=== PATIENT | male | born 1960 | race Caucasian/White ===

== ENCOUNTER → 2017-07-14 10:16 | Outpatient (CLI) | payer OTHER, SELFPAY ==
--- NOTE | 2017-07-14 10:22 | XR_ITS ---
XR chest 2V HISTORY: ITS.REASON: LEUKOCYSTOSIS ORDERING PHYSICIAN: Sarika Barnes PATIENT AGE: 56 years COMPARISON: 02/09/2016 FINDINGS: The cardiomediastinal silhouette and pulmonary vascularity are within normal limits. The lungs are clear without infiltrates, suspicious nodules, or pleural effusions . Bone plate is present over the lower cervical spine No acute bony abnormalities. IMPRESSION: No acute finding
== END ==
PROVIDERS: PCP Family Medicine; Visit Provider Nurse Practitioner
DX: D72.829 Elevated white blood cell count, unspecified (principal)
CPT/HCPCS: 71046

== ENCOUNTER → 2018-06-20 07:47 | Outpatient (CLI) | payer MEDICARE, SELFPAY ==
--- NOTE | 2018-06-20 07:59 | CT_ITS ---
CT lung screening EXAM: CT LUNG LOW DOSE WO CONTRAST HISTORY: 40 pack-year smoking history asymptomatic lung cancer ITS.REASON: CURRENT SMOKER,LUNG SCREEN ORDERING PHYSICIAN: Mayur Guo MD PATIENT AGE: 57 years COMPARISON: None TECHNIQUE: The exam was performed on a GE Light Speed [address] scanner using 2.90 mGy CTDI. A low dose helical CT CHEST was performed on a multi-detector scanner. All CT scans at the facility use one or more dose reduction, viz: automated exposure control, ma/kV adjustment per patient size (including targeted exams where dose is matched to indication, i.e. head), or iterative reconstruction technique. The LDCT was performed in a facility that meets the criteria for the screening program. Data regarding this exam was submitted to ACR which is an approved registry. The order for this exam indicates that it came as a result of a lung cancer screening counseling shard decision-making visit that included all the elements required of such a visit including smoking cessation. The radiologist interpreting this exam meets the CMS criteria for the LDCT lung cancer screening program. The exam is reported using the Lung-RADS classification scale and reported to the ACR registry. NOTE: This study was performed for the specific purposes of lung cancer screening and is not an alternative to diagnostic chest CT. RADIATION DOSE: CTDI vol(CT dose Index-volume) = 2.90mG DLP (Dose Length Product) = 108.26 mGcm FINDINGS: Centrilobular emphysema with hyperinflation and bronchial thickening consistent with obstructive chronic bronchitis. Coronary artery calcifications noted Calcified granuloma right perihilar region 6 mm noncalcified nodule left upper lobe centrally image #47 7 mm noncalcified nodule left upper lobe centrally image #41 mm noncalcified nodule left upper lobe centrally image #42 IMPRESSION: 1. Lung RADS Category: 3, probably benign 2. Other findings: Centrilobular emphysema/COPD Coronary artery calcification RECOMMENDATIONS: [address] follow-up
== END ==
PROVIDERS: PCP Family Medicine; Visit Provider Family Medicine
DX: Z12.2 Encounter for screening for malignant neoplasm of respiratory organs (principal); Z87.891 Personal history of nicotine dependence

== ENCOUNTER → 2022-01-20 12:43 | Outpatient (CLI) | payer MEDICARE, SELFPAY ==
--- NOTE | 2022-01-20 12:51 | XR_ITS ---
FINAL REPORT CLINICAL HISTORY: SOB, wheezing, smoker, copd COMPARISON: July 14, 2017 FINDINGS: SINGLE VIEW CHEST The heart is normal in size. The mediastinum is unremarkable. The lungs are clear. There is no pneumothorax. There is postoperative change in the lower cervical spine. IMPRESSION: No acute process. Reviewed, Interpreted and Dictated by Maldonado Enrique III, MD Transcribed by Brit Villalpando Authenticated and [facility]
[2022-01-20 13:26] LABS: Basophils # 0.2 K/mm3 (0-0.2); Basophils % 1.2 % (0.1-2.0); Eosinophils # 0.2 K/mm3 (0.0-0.4); Eosinophils % 1.2 % (0.1-12.0); Hematocrit 48.2 % (42.0-52.0); Hemoglobin 15.6 g/dL (14.1-18.0); Lymphocytes # 4.3 K/mm3 (0.7-4.5); Lymphocytes % 26.3 % (10-50); Mean Corpuscular HGB Conc 32.4 g/dL (31.8-35.4); Mean Corpuscular Hemoglobin 30.7 pg (27.0-31.2); Mean Corpuscular Volume 94.8 fl (80-94); Mean Platelet Volume 8.5 fl (7.4-10.4); Monocytes # 0.7 K/mm3 (0.1-1.0); Monocytes % 4.2 % (1.7-9.3); Neutrophils # 10.9 K/mm3 (1.8-7.8); Neutrophils % 67.1 % (37.0-80.0); Platelet Count 322 K/mm3 (142-424); Red Blood Count 5.08 M/mm3 (4.60-6.20); Red Cell Distribution Width 13.1 % (11.5-17.5); White Blood Count 16.2 K/mm3 (4.8-10.8)
[2022-01-20 13:29] LABS: MANUAL DIFFERENTIAL MANUAL DIFFERENTIAL (MANUAL DIFF)
--- NOTE | 2022-01-20 13:34 | ECG_ITS ---
APPROVED REPORT Exam: Resting ECG HR:70 bpm ECG Measurements Heart Rate 70 AXES ID 138 P 54 QRSd 101 QRS 50 QT 379 T 41 QTc 400 Conclusion SINUS RHYTHM LOW QRS VOLTAGE IN PRECORDIAL LEADS [QRS DEFLECTION < 1.0 mV IN CHEST LEADS] BORDERLINE ECG UNCONFIRMED REPORT Electronically signed by : Scott Multani MD 01/20/2022 20:59:52
[2022-01-20 13:45] LABS: Lymphocytes % 38 % (10-50); Monocytes % 2 % (2-9); Neutrophils % 60 % (42-76); Total Cells Counted 100
[2022-01-20 13:46] LABS: Platelet Estimate Normal; RBC Morphology Normal
[2022-01-20 13:48] LABS: Chloride 103 mmol/L (98-107); Sodium 138 mmol/L (136-145)
[2022-01-20 13:49] LABS: Potassium 4.3 mmoL/L (3.5-5.1)
[2022-01-20 13:51] LABS: Albumin Level 4.7 g/dl (3.5-5.0); Albumin/Globulin Ratio 1.8 (1.1-1.8); Globulin 2.6 g/dL (1.3-3.2); Total Protein,Serum 7.3 g/dl (6.3-8.2)
[2022-01-20 14:10] LABS: Alanine Aminotransferase 24 U/L (12-78); Alkaline Phosphatase 153 U/L (38-126); Anion Gap 11.3 mEq/L (5-15); Aspartate Amino Transferase 31 U/L (17-59); Bilirubin,Total 0.7 mg/dl (0.2-1.3); Blood Urea Nitrogen 18 mg/dl (9-20); Calcium 9.7 mg/dl (8.4-10.2); Carbon Dioxide 28 mmol/L (22.0-30.0); Estimated Glomerular Filt Rate 68 ml/min (>60); GFR (African American) 82 ML/MIN (>60); Glucose 135 mg/dl (74-100)
[2022-01-20 14:20] LABS: Thyroid Stimulating Hormone 0.87 uIU/mL (0.465-4.68)
[2022-01-20 14:42] LABS: Prostate Specific Ag Screen 12.3 ng/ml (0.0-4.0)
== END ==
PROVIDERS: PCP Nurse Practitioner; Visit Provider Nurse Practitioner
DX: R06.02 Shortness of breath (principal); Z87.891 Personal history of nicotine dependence; Z12.5 Encounter for screening for malignant neoplasm of prostate; E04.1 Nontoxic single thyroid nodule
CPT/HCPCS: 36415; 71045; 80053; 84443; 85007; 85025; 93005; G0103

== ENCOUNTER → 2022-02-23 07:06 | Outpatient (CLI) | payer MEDICARE, SELFPAY ==
--- NOTE | 2022-02-23 07:06 | CT_ITS ---
FINAL REPORT CLINICAL HISTORY: lung cancer screening. currently smoking 1 ppd x 40 years. copd, exposed to 2nd hand smoke. no family hx of lung cancer. COMPARISON: June 20, 2018 FINDINGS: Low-Dose Chest CT Axial images were obtained from the lung apex to the mid abdomen by computed tomography. Low-dose protocol was utilized. CTDI vol (mGy): 2.90 DLP (mGy-cm): 106.29 There is no axillary adenopathy. There is no hilar or mediastinal adenopathy. The heart is proper size. There are moderate coronary artery calcifications. There is no pericardial or pleural effusion. Limited images of the upper abdomen demonstrate postoperative changes from cholecystectomy. Lung window images demonstrate mild changes of emphysema with mild pulmonary scarring. There are several calcified granulomas. There are several less than 5 mm noncalcified nodules which are stable. No new mass or nodule is identified. IMPRESSION: Several less than 5 mm noncalcified nodules, stable. Lung RADS category 1. Recommend 12 month follow-up low-dose chest CT. Reviewed, Interpreted and Dictated by Maldonado Enrique III, MD Transcribed by Brit Villalpando Authenticated and [facility]
[2022-02-23 08:45] VITALS: PULSE 72; PULSE 77
== END ==
PROVIDERS: PCP Nurse Practitioner; Visit Provider Nurse Practitioner
DX: R06.02 Shortness of breath (principal); R22.1 Localized swelling, mass and lump, neck; Z12.9 Encounter for screening for malignant neoplasm, site unspecified; Z87.891 Personal history of nicotine dependence; Z01.818 Encounter for other preprocedural examination
CPT/HCPCS: 71271; 94060; 94640; 94727; 94729; C9803; U0003; U0005

== ENCOUNTER → 2022-02-24 06:07 | Outpatient (CLI) | payer MEDICARE, SELFPAY ==
[2022-02-24 18:18] LABS: Basophils # 0.1 K/mm3 (0-0.2); Basophils % 0.8 % (0.1-2.0); Eosinophils # 0.4 K/mm3 (0.0-0.4); Eosinophils % 2.1 % (0.1-12.0); Hemoglobin 15.2 g/dL (14.1-18.0); Lymphocytes # 3.7 K/mm3 (0.7-4.5); Lymphocytes % 21.7 % (10-50); Mean Corpuscular HGB Conc 33.1 g/dL (31.8-35.4); Mean Corpuscular Hemoglobin 31.1 pg (27.0-31.2); Mean Platelet Volume 9.5 fl (7.4-10.4); Monocytes # 0.7 K/mm3 (0.1-1.0); Monocytes % 3.8 % (1.7-9.3); Neutrophils # 12.3 K/mm3 (1.8-7.8); Neutrophils % 71.6 % (37.0-80.0); Platelet Count 391 K/mm3 (142-424); Red Blood Count 4.89 M/mm3 (4.60-6.20); Red Cell Distribution Width 13.3 % (11.5-17.5); White Blood Count 17.2 K/mm3 (4.8-10.8)
[2022-02-24 18:20] LABS: MANUAL DIFFERENTIAL MANUAL DIFFERENTIAL (MANUAL DIFF)
[2022-02-24 18:35] LABS: Alanine Aminotransferase 23 U/L (12-78); Albumin Level 4.1 g/dl (3.5-5.0); Albumin/Globulin Ratio 1.6 (1.1-1.8); Alkaline Phosphatase 144 U/L (38-126); Anion Gap 9.6 mEq/L (5-15); Aspartate Amino Transferase 32 U/L (17-59); Bilirubin,Total 0.4 mg/dl (0.2-1.3); Blood Urea Nitrogen 15 mg/dl (9-20); Calcium 9.5 mg/dl (8.4-10.2); Carbon Dioxide 30 mmol/L (22.0-30.0); Chloride 100 mmol/L (98-107); Chol/HDL Ratio 4.3 (1-3.5); Cholesterol 152 mg/dl (140-200); Estimated Glomerular Filt Rate 76 ml/min (>60); GFR (African American) 92 ML/MIN (>60); Globulin 2.5 g/dL (1.3-3.2); Glucose 110 mg/dl (74-100); HDL Cholesterol 35 mg/dl (40-60); Potassium 4.6 mmoL/L (3.5-5.1); Sodium 135 mmol/L (136-145); Total Protein,Serum 6.6 g/dl (6.3-8.2); Triglycerides 220 mg/dl (30-150); VLDL Cholesterol 44 mg/dL (0-40)
[2022-02-24 18:46] LABS: Direct LDL Cholesterol 79.39 mg/dL (100-129)
[2022-02-24 19:07] LABS: Thyroid Stimulating Hormone 1.41 uIU/mL (0.465-4.68)
[2022-02-24 19:09] LABS: Hemoglobin A1C 6.2 % (4.0-6.0)
[2022-02-24 19:38] LABS: Creatinine,Urine Random 66 mg/dL (Not Estab.)
[2022-02-24 20:12] LABS: Eosinophils % 4 % (0-3); Lymphocytes % 30 % (10-50); Monocytes % 3 % (2-9); Neutrophils % 63 % (42-76); Total Cells Counted 100
[2022-02-24 20:13] LABS: Acanthocytes 1+; Platelet Estimate Normal
== END ==
PROVIDERS: PCP Family Medicine; Visit Provider Family Medicine
DX: E78.00 Pure hypercholesterolemia, unspecified (principal); I10 Essential (primary) hypertension; K21.9 Gastro-esophageal reflux disease without esophagitis; M54.12 Radiculopathy, cervical region; E11.9 Type 2 diabetes mellitus without complications; Z79.84 Long term (current) use of oral hypoglycemic drugs
CPT/HCPCS: 80053; 80061; 82043; 82570; 83036; 84443; 85007; 85025

== ENCOUNTER 2022-02-25 09:46 | Day surgery (SDC) | payer MEDICARE, SELFPAY ==
[2022-02-25 10:32] VITALS: BP 134/90; PULSE 70; RESP 18; TEMP 36.2; O2SAT 97; BMI 31.8
[2022-02-25 10:44] LABS: POC Glucose,Bedside 114 (70-110)
[2022-02-25 11:15] VITALS: O2SAT 97
--- NOTE | 2022-02-25 11:31 | HMH.SCOPE ---
Procedure: Date: 02/25/22 Patient Date of :: 1960 Procedure Performed:: Screening colonoscopy Indications:: Age over 50 screening Performing Provider:: Melissa Luna MD Referring Provider:: Sarika Barnes Sedation:: Propofol Procedure:: After placing the patient in the left lateral decubitus position, the colonoscopy was gently inserted into the rectum and under direct visualization advanced to the cecum which was identified by transillumination in the right lower quadrant, identification of the ileocecal valve, appendiceal orifice, and cecal strap. Color, texture, mucosa, and anatomy of the colon were carefully examined with the scope. Findings:: Anal canal: normal Rectum: normal Sigmoid colon: normal without polyps or inflammatory changes Descending colon: normal without polyps or inflammatory changes Splenic flexure: normal Transverse colon: normal without polyps or inflammatory changes Hepatic flexure: normal Ascending colon: normal without polyps or inflammatory changes Cecum: normal, lipomatous ileocecal valve Terminal ileum: not visualized Impression: Normal colonoscopy Recommendations:: Follow up examination in about TEN years or so sooner if clinically indicated Complications:: None Estimated blood obtained (mL): 0
[2022-02-25 11:38] VITALS: BP 101/56; PULSE 69; RESP 18; O2SAT 99
[2022-02-25 11:50] VITALS: BP 99/53; PULSE 72; RESP 18; O2SAT 97
[2022-02-25 12:00] VITALS: BP 105/60; PULSE 77; RESP 18; O2SAT 96
--- NOTE | 2022-02-25 13:30 | P.PN_ITS ---
[facility] Medical History (Updated 02/25/22 @ 10:25 by Ashlyn Marsh RN) Arthritis BPH loc w urin obs/LUTS Cervical radiculopathy COPD (chronic obstructive pulmonary disease) Diabetes mellitus DM2 (diabetes mellitus, type 2) Elevated PSA GERD (gastroesophageal reflux disease) HTN (hypertension) Hyperlipemia Hyperlipidemia Surgical History History of appendectomy History of cholecystectomy History of neck surgery Family History (Updated 02/25/22 @ 10:27 by Ashlyn Marsh RN) Other Diabetes Hypertension Social History (Updated 02/25/22 @ 10:30 by Ashlyn Marsh RN) Smoking Status: Current every day smoker tobacco type: cigarettes packs per day: 1 years smoked: 40 alcohol intake: never substance use type: marijuana current occupational status: retired Travel in the last 8 weeks: None [facility] Anesthesia Checklist Patient Identification Patient Identification: Arm Band Structural Data Admitted From: Direct Admit Planned Operative Procedure/s: Colonoscopy Consent for Planned Operative Procedure(s) Verified: Yes Verified Documents: Surgical Consent and History and Physical Additional verifications Patient : No Anesthesia Reactions: No Hx Blood Transfusions: No Cephalosporin Allergy: No Previous Colonoscopy: No Airway Assessment C-Spine Mobility Assessed: Yes TMJ Mobility Assessed: Yes Dentition: Good Dentition Neurological Assessment Level of Consciousness: Awake, Alert, Appropriate and Follows Commands Hx Seizures: No Numbness or tingling in extremities: No Genitourinary Assessment Voided senior sales operations analyst to O.R.: Yes Anesthesia Plan Anesthesia Risk discussed: Yes ASA Class: II Anesthesia Type: MAC
--- NOTE | 2022-02-25 13:56 | EXP.ANES.CKL ---
[facility] Medical History (Updated 02/25/22 @ 10:25 by Ashlyn Marsh RN) Arthritis BPH loc w urin obs/LUTS Cervical radiculopathy COPD (chronic obstructive pulmonary disease) Diabetes mellitus DM2 (diabetes mellitus, type 2) Elevated PSA GERD (gastroesophageal reflux disease) HTN (hypertension) Hyperlipemia Hyperlipidemia Surgical History History of appendectomy History of cholecystectomy History of neck surgery Family History (Updated 02/25/22 @ 10:27 by Ashlyn Marsh RN) Other Diabetes Hypertension Social History (Updated 02/25/22 @ 10:30 by Ashlyn Marsh RN) Smoking Status: Current every day smoker tobacco type: cigarettes packs per day: 1 years smoked: 40 alcohol intake: never substance use type: marijuana current occupational status: retired Travel in the last 8 weeks: None [facility] Anesthesia Checklist Patient Identification Patient Identification: Arm Band and Family Structural Data Admitted From: Home Planned Operative Procedure/s: colonoscopy Consent for Planned Operative Procedure(s) Verified: Yes Verified Documents: Surgical Consent NPO Status Verified Time NPO: 00:00 Additional verifications Anesthesia Reactions: No Hx Blood Transfusions: No Cephalosporin Allergy: No Cardiovascular Assessment Heart Sounds: S1 & S2 Airway Assessment C-Spine Mobility Assessed: Yes Dentition: Good Dentition Neurological Assessment Level of Consciousness: Awake and Alert Genitourinary Assessment Voided director of content and programming to O.R.: Yes Anesthesia Plan Anesthesia Risk discussed: Yes ASA Class: II Anesthesia Type: MAC
== END 2022-02-25 12:00 | disposition home or self-care (01) ==
PROVIDERS: PCP Nurse Practitioner; Visit Provider Internal Medicine Gastroenterology
PROC: 0DJD8ZZ Inspection of Lower Intestinal Tract, Via Natural or Artificial Opening Endoscopic (ICD-10-PCS; CPT 45378; principal; 2022-02-25 11:00)
DX: Z12.11 Encounter for screening for malignant neoplasm of colon (principal); E11.9 Type 2 diabetes mellitus without complications; Z72.0 Tobacco use
CPT/HCPCS: G0121; 82962

== ENCOUNTER → 2022-02-26 10:13 | Outpatient (CLI) | payer MEDICARE, SELFPAY | PROVIDERS: PCP Nurse Practitioner; Visit Provider Urology | DX: Z01.812 Encounter for preprocedural laboratory examination (principal); Z20.822 Contact with and (suspected) exposure to COVID-19; R97.20 Elevated prostate specific antigen [PSA] | CPT/HCPCS: C9803; U0003; U0005 ==

== ENCOUNTER 2022-03-01 08:32 | Day surgery (SDC) | payer MEDICARE, SELFPAY ==
[2022-02-26 11:33] VITALS: BMI 32.8
[2022-03-01 09:08] VITALS: BP 131/81; PULSE 62; RESP 18; TEMP 36.2; O2SAT 99
[2022-03-01 09:27] LABS: POC Glucose,Bedside 102 (70-110)
[2022-03-01 10:27] VITALS: BP 81/50; PULSE 59; RESP 18; TEMP 36.1; O2SAT 94
--- NOTE | 2022-03-01 10:29 | EXP.OP.NOTE ---
Date of procedure: 03/01/22 Pre-op Diagnosis:: Elevated PSA Post-op Diagnosis:: Elevated PSA Procedure performed:: Prostate biopsy with transrectal ultrasound guidance Surgeon:: Carlos Moreno MD IDENTITY MANAGEMENT CONSULTANT:: Other Anesthesia: MAC Estimated blood loss (mL): 0 Clinical Note:: 61-year-old white male with PSA elevation of 12.3 presents for prostate biopsy. His last PSA was 5.9 in 2018 which time he also underwent prostate biopsy without evidence of cancer at that time. No PSAs have been done between 2018 and the most recent. Operative findings:: Prostate was measured at 31.1 cm?. There was a significant amount of prostate calcifications. There was no evidence of hypoechoic or hyperechoic lesions. Prostate appeared symmetric Operative note:: Patient taken to the operating room suite and placed into the left lateral decubitus position on the stretcher. Monitored anesthesia care was administered. Patient had performed preoperative enema and oral antibiotics. His legs were flexed up towards the chest and the transrectal ultrasound probe was placed into the rectum and the prostate was easily identified. The prostate was measured at 31.1 cm?. There was an abundance of prostate calcifications present bilaterally mostly in the central zone. There was no evidence of hypoechoic or hyperechoic lesions. Prostate appears symmetric. Local anesthetic was placed into each neurovascular bundle and 12 biopsies then taken in a systematic fashion. The probe removed. The patient tolerated the procedure well there are no complications. Condition: stable Disposition: same day Specimens:: Prostate biopsies x12 Complications:: None
[2022-03-01 10:40] VITALS: BP 95/57; PULSE 58; RESP 18; O2SAT 96
[2022-03-01 10:55] VITALS: BP 105/69; PULSE 59; RESP 18; O2SAT 97
== END 2022-03-01 11:00 | disposition home or self-care (01) ==
PROVIDERS: PCP Nurse Practitioner; Visit Provider Urology
DX: N40.0 Benign prostatic hyperplasia without lower urinary tract symptoms (principal); R97.20 Elevated prostate specific antigen [PSA]; F17.210 Nicotine dependence, cigarettes, uncomplicated; Z79.899 Other long term (current) drug therapy
CPT/HCPCS: 55700; 76942; 82962; 88305

== ENCOUNTER 2022-05-02 07:38 | Emergency (ER) | payer MEDICARE, SELFPAY ==
[2022-05-02 07:36] VITALS: BP 145/88; PULSE 76; RESP 18; TEMP 36.6; O2SAT 98; BMI 33.0
--- NOTE | 2022-05-02 07:53 | XR_ITS ---
PROCEDURE INFORMATION: Exam: XR Lumbosacral Spine Exam date and time: 05/02/2022 7:57 AM Age: 61 years old Clinical indication: Low back pain and lumbago with sciatica and sciatica; Left; Additional info: Pain goes down left leg from back to hip TECHNIQUE: Imaging protocol: Radiologic exam of the lumbosacral spine. Views: 2 or 3 views. COMPARISON: No relevant prior studies available. FINDINGS: Bones/joints: There is straightening of the lumbar curvature. There is at least moderate neural foraminal stenosis at the L5-S1 level. Severity would be more accurately evaluated on MRI lumbar spine, if clinically indicated. Soft tissues: Unremarkable. Intraperitoneal space: Postsurgical changes throughout pelvis. Gastrointestinal tract: No findings to suggest bowel obstruction. Normal bowel gas pattern. Organs: Post cholecystectomy clips. Post appendectomy clips. IMPRESSION: There is straightening of the lumbar curvature. There is at least moderate neural foraminal stenosis at the L5-S1 level. Severity would be more accurately evaluated on MRI lumbar spine, if clinically indicated.
[2022-05-02 08:00] VITALS: BP 144/96; PULSE 76; O2SAT 98
--- NOTE | 2022-05-02 08:00 | PC.NURSE ---
PT TO XR
--- NOTE | 2022-05-02 08:10 | PC.NURSE ---
PT RETURNED FROM XR
--- NOTE | 2022-05-02 08:14 | PC.NURSE ---
DR. FRY AT BEDSIDE TO EVALUATE PT
--- NOTE | 2022-05-02 08:20 | HMH.EDGENADL ---
Discharge Plan Disposition Patient Disposition: Home, Self-Care Condition: Fair Prescriptions Prescriptions: New oxycodone-acetaminophen [Percocet] 5-325 mg tablet 1 tab PO Q6H PRN (Reason: pain) Qty: 10 0RF prednisone 20 mg tablet 20 mg PO BID Qty: 10 0RF No Action atorvastatin 20 mg tablet 20 mg PO DAILY Qty: 30 5RF gabapentin 300 mg capsule 300 mg PO HS Qty: 30 5RF lisinopril 20 mg tablet 20 mg PO DAILY Qty: 30 5RF metformin 500 mg tablet extended release 24 hr 500 mg PO DAILY Qty: 30 5RF albuterol sulfate 90 mcg/actuation HFA aerosol inhaler 2 puff IH Q4-6H PRN (Reason: shortness of breath or wheezing) Qty: 8.5 2RF omeprazole 40 mg capsule,delayed release(DR/EC) 40 mg PO DAILY Qty: 30 3RF Trelegy Ellipta 100-62.5-25 mcg blister with device 1 inh IH DAILY Referrals Follow up/Referrals: Mayur Guo MD [Primary Care Provider] - See instructions Activity Restrictions/Add. Instructions Additional Instructions/Restrictions: Percocet as needed for pain. Prednisone as prescribed. Additional instructions for BACK PAIN: See your physician as soon as possible for further evaluation. Return immediately if back pain becomes intolerable, or if fever, numbness or weakness of your legs, loss of control of your bowels or bladder. Additional instructions for CONTROLLED SUBSTANCES: You have been prescribed a medication that is a controlled substance. Controlled substances include pain medications known as opiates and sedative nerve medications known as benzodiazepines. Tramadol, fioricet, and gabapentin are also controlled substances. Some common opiates include: Codeine (such as Tylenol #3) Hydrocodone (Vicodin, Lortab, Lorcet, Hughes) Oxycodone (Percocet, Percodan, Oxycodone, Oxy IR) Some common benzodiazepines include: Diazepam (Valium) Lorazepam (Ativan) Alprazolam (Xanax) Clonazepam (Klonopin) Oxazepam (Serax) All of these controlled substances are highly addictive and frequently abused. Misuse can and frequently does lead to addiction as well as overdose and . Medication should be stored in a locked cabinet or other secure storage unit. Do not store the medication in a motor vehicle. Short term supplies, 3 days or less, are prescribed because of the highly addictive nature of the medication. Any of the controlled substance medication NOT taken should be disposed of properly and NOT SAVED. The recommended method of disposing of unused medications is: Place the medicines in a sealable plastic bag. If the medicine is a solid, crush it or add water to dissolve it. Add something undesirable (cat litter, coffee grounds, etc.) Dispose of sealed bag in household trash Do not flush or pour unused medicines down a sink or drain. Controlled substances should not be shared, given away or sold. Because of the addictive nature and frequent abuse, these medications are sometimes stolen. These medications should be kept in a safe place where they cannot be stolen. Do not keep them in your car or purse. Lost or stolen prescriptions for controlled substances WILL NOT BE REFILLED in this emergency department, regardless of whether a police report was filed. Clinical Impressions Clinical Impression: Acute low back pain with sciatica, DDD (degenerative disc disease), lumbar Instructions Patient Instructions: DI for Back Pain With Sciatica, DI for Degenerative Disc Disease Discharge ED Provider: Vickey Vidal General Adult HPI General Chief complaint: Back Pain/Injury Stated complaint: BACK PAIN Time Seen by Provider: 05/02/22 08:07 Mode of Arrival: EMS Limitations: No Limitations Description of Symptoms (Recalled from ER Triage Doc. by RN): PT REPORTS LOWER BACK PAIN, LEFT HIP PAIN THAT RADIATES DOWN LEFT LEG. PAIN X 2 WEEKS History of Present Illness HPI narrative: States that 10 days ago he was lifting a 5 gallon bucket when he felt a po
[2022-05-02 08:47] VITALS: BP 155/82; PULSE 72; RESP 20; O2SAT 99
--- NOTE | 2022-05-02 08:47 | PC.NURSE ---
PT MEDICATED PER EMAR, FAMILY AT BEDSIDE. NO FURTHER NEEDS AT THIS TIME
[2022-05-02 08:54] VITALS: BP 155/82; PULSE 80; RESP 17; TEMP 36.8; O2SAT 97
== END 2022-05-02 08:56 | disposition home or self-care (01) ==
PROVIDERS: Emergency Provider Emergency Medicine; PCP Family Medicine
DX: R06.02 Shortness of breath (principal); M54.40 Lumbago with sciatica, unspecified side; M25.552 Pain in left hip; R53.1 Weakness; I10 Essential (primary) hypertension; K21.9 Gastro-esophageal reflux disease without esophagitis; E78.5 Hyperlipidemia, unspecified; E11.9 Type 2 diabetes mellitus without complications; N40.1 Benign prostatic hyperplasia with lower urinary tract symptoms; R97.20 Elevated prostate specific antigen [PSA]; M19.90 Unspecified osteoarthritis, unspecified site; M51.36 Other intervertebral disc degeneration, lumbar region; M48.07 Spinal stenosis, lumbosacral region; F17.210 Nicotine dependence, cigarettes, uncomplicated; Z79.1 Long term (current) use of non-steroidal anti-inflammatories (NSAID); Z79.51 Long term (current) use of inhaled steroids; Z79.52 Long term (current) use of systemic steroids; Z79.84 Long term (current) use of oral hypoglycemic drugs; Z79.899 Other long term (current) drug therapy; Z82.49 Family history of ischemic heart disease and other diseases of the circulatory system; Z83.3 Family history of diabetes mellitus
CPT/HCPCS: 72100; 96372; 99284; J2405

== ENCOUNTER → 2022-08-25 23:38 | Outpatient (CLI) | payer MEDICARE, SELFPAY ==
[2022-08-25 18:43] LABS: Basophils # 0.1 K/mm3 (0-0.2); Basophils % 0.8 % (0.1-2.0); Eosinophils # 0.3 K/mm3 (0.0-0.4); Eosinophils % 1.9 % (0.1-12.0); Hematocrit 49.3 % (42.0-52.0); Hemoglobin 15.8 g/dL (14.1-18.0); Lymphocytes # 4.1 K/mm3 (0.7-4.5); Lymphocytes % 26.2 % (10-50); Mean Corpuscular Hemoglobin 29.7 pg (27.0-31.2); Mean Corpuscular Volume 92.7 fl (80-94); Mean Platelet Volume 9.4 fl (7.4-10.4); Monocytes # 0.6 K/mm3 (0.1-1.0); Neutrophils # 10.6 K/mm3 (1.8-7.8); Neutrophils % 67.1 % (37.0-80.0); Platelet Count 414 K/mm3 (142-424); Red Blood Count 5.31 M/mm3 (4.60-6.20); Red Cell Distribution Width 13.1 % (11.5-17.5); White Blood Count 15.8 K/mm3 (4.8-10.8)
[2022-08-25 18:50] LABS: MANUAL DIFFERENTIAL MANUAL DIFFERENTIAL (MANUAL DIFF)
[2022-08-25 18:52] LABS: Anion Gap 13.6 mEq/L (5-15); Blood Urea Nitrogen 18 mg/dl (9-20); Calcium 9.1 mg/dl (8.4-10.2); Carbon Dioxide 30 mmol/L (22.0-30.0); Chloride 98 mmol/L (98-107); Chol/HDL Ratio 4.4 (1-3.5); Cholesterol 155 mg/dl (140-200); Estimated Glomerular Filt Rate 86 ml/min (>60); GFR (African American) 103 ML/MIN (>60); Glucose 114 mg/dl (74-100); HDL Cholesterol 35 mg/dl (40-60); Potassium 4.6 mmoL/L (3.5-5.1); Sodium 137 mmol/L (136-145); Triglycerides 259 mg/dl (30-150); VLDL Cholesterol 52 mg/dL (0-40)
[2022-08-25 19:03] LABS: Direct LDL Cholesterol 83.64 mg/dL (100-129)
[2022-08-25 19:21] LABS: Hemoglobin A1C 6.1 % (4.0-6.0)
[2022-08-25 22:12] LABS: Eosinophils % 2 % (0-3); Lymphocytes % 22 % (10-50); Monocytes % 2 % (2-9); Neutrophils % 73 % (42-76); Platelet Estimate Normal; RBC Morphology Normal; Total Cells Counted 100
== END ==
PROVIDERS: PCP Family Medicine; Visit Provider Family Medicine
DX: I10 Essential (primary) hypertension (principal); E78.00 Pure hypercholesterolemia, unspecified; E11.9 Type 2 diabetes mellitus without complications; Z79.84 Long term (current) use of oral hypoglycemic drugs
CPT/HCPCS: 80048; 80061; 83036; 85007; 85025

== ENCOUNTER → 2023-02-03 | Outpatient (CLI) | payer MEDICARE, SELFPAY ==
[2023-02-02 19:05] LABS: Basophils # 0.1 K/mm3 (0-0.2); Basophils % 0.3 % (0.1-2.0); Eosinophils # 0.3 K/mm3 (0.0-0.4); Eosinophils % 1.6 % (0.1-12.0); Hematocrit 48.5 % (42.0-52.0); Hemoglobin 15.9 g/dL (14.1-18.0); Lymphocytes # 4.4 K/mm3 (0.7-4.5); Mean Corpuscular HGB Conc 32.8 g/dL (31.8-35.4); Mean Corpuscular Hemoglobin 30.6 pg (27.0-31.2); Mean Corpuscular Volume 93.1 fl (80-94); Mean Platelet Volume 10.7 fl (7.4-10.4); Monocytes # 0.8 K/mm3 (0.1-1.0); Monocytes % 4.3 % (1.7-9.3); Neutrophils # 12.2 K/mm3 (1.8-7.8); Platelet Count 365 K/mm3 (142-424); Red Cell Distribution Width 13.4 % (11.5-17.5); White Blood Count 17.8 K/mm3 (4.8-10.8)
[2023-02-02 19:13] LABS: MANUAL DIFFERENTIAL MANUAL DIFFERENTIAL (MANUAL DIFF)
[2023-02-02 19:36] LABS: Alanine Aminotransferase 19 U/L (12-78); Albumin Level 4.6 g/dl (3.5-5.0); Albumin/Globulin Ratio 1.7 (1.1-1.8); Alkaline Phosphatase 148 U/L (38-126); Anion Gap 16.8 mEq/L (5-15); Aspartate Amino Transferase 29 U/L (17-59); Bilirubin,Total 0.4 mg/dl (0.2-1.3); Blood Urea Nitrogen 20 mg/dl (9-20); Calcium 9.6 mg/dl (8.4-10.2); Carbon Dioxide 30 mmol/L (22.0-30.0); Chloride 100 mmol/L (98-107); Chol/HDL Ratio 4.1 (1-3.5); Cholesterol 147 mg/dl (140-200); Estimated Glomerular Filt Rate 75 ml/min (>60); GFR (African American) 91 ML/MIN (>60); Globulin 2.7 g/dL (1.3-3.2); Glucose 93 mg/dl (74-100); HDL Cholesterol 36 mg/dl (40-60); Potassium 4.8 mmoL/L (3.5-5.1); Sodium 142 mmol/L (136-145); Total Protein,Serum 7.3 g/dl (6.3-8.2); Triglycerides 209 mg/dl (30-150); VLDL Cholesterol 42 mg/dL (0-40)
[2023-02-02 19:47] LABS: Direct LDL Cholesterol 75.51 mg/dL (100-129)
[2023-02-02 20:08] LABS: Prostate Specific Ag Screen 9.1 ng/ml (0.0-4.0); Thyroid Stimulating Hormone 1.41 uIU/mL (0.465-4.68)
[2023-02-02 20:26] LABS: Eosinophils % 1 % (0-3); Lymphocytes % 46 % (10-50); Monocytes % 4 % (2-9); Neutrophils % 49 % (42-76); Platelet Estimate Normal; RBC Morphology Normal; Total Cells Counted 100
[2023-02-03 03:38] LABS: Creatinine,Urine Random 95 mg/dL (Not Estab.); Microalbumin/Creatinine Ratio 18.6
== END ==
PROVIDERS: PCP Nurse Practitioner; Visit Provider Nurse Practitioner
DX: E11.9 Type 2 diabetes mellitus without complications (principal); E78.00 Pure hypercholesterolemia, unspecified; I10 Essential (primary) hypertension; K21.9 Gastro-esophageal reflux disease without esophagitis; R97.20 Elevated prostate specific antigen [PSA]; E78.5 Hyperlipidemia, unspecified; Z12.5 Encounter for screening for malignant neoplasm of prostate; Z79.84 Long term (current) use of oral hypoglycemic drugs
CPT/HCPCS: 80053; 80061; 82043; 82570; 83036; 84443; 85007; 85025; G0103

== ENCOUNTER → 2023-02-11 12:37 | Outpatient (CLI) | payer MEDICARE, SELFPAY ==
--- NOTE | 2023-02-11 | CA_ITS ---
APPROVED REPORT Exam: Exercise Treadmill Technologist: Tasneem Michaels, Ht: 5 ft 8 in Wt: 208 lbs BSA: 2.08 m2 HR: 67 bpm BP: 172/89 mmHg Rhythm: NSR Medical History Medical History: HTN, Hyperlipidemia, Diabetes Medications: Lisinopril,,,,, Omeprazole,,,,, Metformin,,,,, Gabapentin,,,,, Atorvastatin,,,,, Albuterol,,,,, Cefdinir,,,,, Trelegy,,,,, MethcarbaMOL,,,,, Allergies: No known drug allergies Cardiac Risk Factors: HTN, Hyperlipidemia, Diabetes , Smoking Stress Test Details Test: Kian HR Resting HR: 65 bpm Max Heart Rate (APMHR): 157.370345 bpm Max HR Achieved: 132 bpm Target HR (85% APMHR): 133.660964 bpm % of APMHR: 84.08 Recovery HR: 86 bpm BP Resting BP: 172/89 mmHg Max BP: 185/90 mmHg Recovery BP: 151.0/81.0 mmHg ECG Resting ECG: NSR Clinical Exercise duration: 07:01 min Highest Stage Achieved: Exercise capacity: 10.1 METs Stress ECG Conclusion PT WALKEDE 7:00 ON KIAN PROTOCOL MAX HR: 132 % OF PM: 84% MAX BP: 185/90 METS: 10.1 TEST STOPPED DUE TO: HIP PAIN, SOA NO CP OCC PAC APPRX 0.5MM UPSLOPING ST DEPRESSION LATERALLY WITHIN NORMAL GXT FOR HR ACHIEVED MYOVIEW IMAGES IN PROGRESS Test Summary REST . . . . . . . Sitting REST 11:29 0.0 0.0 65 . 172/ 89 . . Stage 1 01:00 10.0 1.7 81 . . . . Stage 1 02:00 10.0 1.7 90 . . . . Stage 1 03:00 10.0 1.7 87 . . . . Stage 2 01:00 12.0 2.5 102 . . . . Stage 2 02:00 12.0 2.5 111 . . . . Stage 2 03:00 12.0 2.5 120 . 185/ 90 . . Stage 3 01:00 14.0 3.4 130 . . . . Stage 3 01:01 14.0 3.4 130 . . . Stop exercise at 07:01 RECOVERY 01:00 0.0 0.0 122 . . . . RECOVERY 02:00 0.0 0.0 91 . 175/ 71 . . RECOVERY 03:00 0.0 0.0 88 . 175/ 71 . . RECOVERY 04:00 0.0 0.0 92 . 157/ 75 . . RECOVERY 05:00 0.0 0.0 91 . 151/ 81 . . RECOVERY 05:26 0.0 0.0 85 . 151/ 81 . . Electronically signed by : Scott Multani MD 02/14/2023 15:56:00
--- NOTE | 2023-02-11 12:38 | NM_ITS ---
APPROVED REPORT Exam: Nuclear Stress Test Indication: HTN, DM, HYPERLIPIDEMIA, TOB USE, C.P. Patient Location: Outpatient Stress Tech: Tasneem Michaels ID Tech:Shari Duong LORENA RT (R)(N)(M) Ht: 5 ft 8 in Wt: 208 lbs HR: 67 bpm BP: 172/89 mmHg BSA: 2.08 m2 TID: 0.99 BMI: 31.6 History: HTN, DM, HYPERLIPIDEMIA, TOB USE, C.P. Procedure: Patient exercised on Abdiaziz protocol 7:01 minutes and sec, resting heart rate 67 bpm, resting blood pressure 172/89 mmHg, with exercise maximum heart rate achived was 132 bpm which is 84 % of the maximum predicted heart rate and blood pressure was 185/90 mmHg. Test was stopped due to FATIGUE. Patient denied any complaint of chest pain. Patient has Average exercise capacity, achieved 10.1 METs of workload on treadmill, the blood pressure response to exercise was Normal. Cardiac Stress and Resting SPECT Images: Cardiac Stress and Resting SPECT images were obtained using technetium 99m Myoview 31.9 mCi stress and 10.98 mCi at rest. Raw images demonstrate significant diaphragmatic overlap with the inferior border of the LV wall. This may affect the diagnostic interpretation of the study findings. Resting and stress imaging in supine position demonstrate a large sized, moderate, fixed perfusion defect in the inferior LV wall. This is no longer visualized with prone stress imaging. Findings are suggestive of diaphragmatic attenuation. Gated imaging demonstrates normal global and regional LV systolic function. LVEF is calculated at 64%. Conclusion: Diaphragmatic attenuation is present. No definite fixed or reversible perfusion defects are present. Gated imaging demonstrates normal global and regional LV systolic function. LVEF is calculated at 64%. Electronically signed by : Hali Pérez, 02/14/2023 20:08:07
== END ==
LOC: RAD 12:38
PROVIDERS: PCP Nurse Practitioner; Visit Provider Nurse Practitioner
DX: R07.9 Chest pain, unspecified (principal)
CPT/HCPCS: 78452; 93017; A9502

== ENCOUNTER → 2023-02-15 14:35 | Outpatient (CLI) | payer MEDICARE, SELFPAY ==
--- NOTE | 2023-02-15 14:39 | CA_ITS ---
APPROVED REPORT EXAM: Comprehensive 2D, Doppler, and color-flow Echocardiogram Senior Mainframe Developer: CHARISMA Bahena, RVS Ht: 5 ft 8 in Wt: 208lbs BSA: 2.08 BP: 130/63 mmHg Indications: Smoker, COPD, SOB, DM, HLD 2D Dimensions Aortic Root 3.40 cm M: 3.1 - 3.7 LA Volume 51.70 mL Left Atrium 2.50 cm M: 3.0 - 4.0 LA Volume Index 24.86 mL/m2 (M/F) 16-34 LVOT 1.97 cm (M/F) 1.5-2.5 M-Mode Dimensions RVDd 2.21 cm (0.9-2.6) LA Diam 2.98 cm (1.9-4.0) LVDd 4.97 cm (3.5-5.7) Ao Diam 3.48 cm (2.0-3.7) LVDs 3.32 cm (3.5-5.7) IVSd 1.18 cm (0.6-1.1) PWd 1.07 cm (0.6-1.1) EF (Teich) 61.60% EPSs 0.14 cm FS 33.20% EDV (Teich) 116.60 mL TAPSE 2.59 (<1.7) ESV (Teich) 44.80 mL LV Diastology E Decel Time 273.00 (160-240 msec) E/A Ratio 0.79 MED E' 6.50 (< 7 cm/sec) MED A' 9.70 cm/s E'/MED E' Ratio 11.25 (>14) LAT E' 9.40 (<10 cm/sec) LAT A' 10.50 cm/s E/LAT E' Ratio 7.78 (>14) Aortic Valve LVOT Max 134.00 (70-110 cm/s) LVOT VTI 27.93 cm AoV Peak Petar. 138.00 (50-130 cm/s) AO Peak GR. 7.60 mmHg AO Mean GR. 3.80 (<5 mmHg) AO VTI 27.82 (18-25 cm) SHAWN (VTI) 3.06 (2.5-4.5 cm2) Mitral Valve MV A Velocity 92.00 (40-130 cm/s) E/A Ratio 0.79 MV Decel. Time 273.00 (160-240 ms) Pulmonary Valve PV Peak Velocity 79.00 (50-150 cm/s) Tricuspid Valve TR P. Velocity 184.00 cm/s Left Ventricle The left ventricle is normal size. The left ventricular systolic function is normal. The left ventricular ejection fraction is within the normal range. There is normal left ventricular wall thickness. There is normal LV segmental wall motion. The left ventricular diastolic function is normal. LVEF is 55%. Right Ventricle The right ventricle is normal size. The right ventricular systolic function is normal. Atria The left atrium size is normal. The right atrium size is normal. There is no Doppler evidence of interatrial shunt. Aortic Valve The aortic valve is mildly thickened. There is no aortic valvular stenosis. No aortic regurgitation is present. Mitral Valve The mitral valve is normal in structure. No evidence of mitral valve stenosis. There is no mitral valve regurgitation noted. Tricuspid Valve The tricuspid valve leaflets are thin and pliable. Trace tricuspid regurgitation. RVSP is normal. Pulmonic Valve The pulmonary valve is normal in structure. Trace pulmonic regurgitation. Great Vessels The aortic root is normal in size. The ascending aorta is normal in size. IVC is normal in size and collapses >50% with inspiration. Pericardium There is no pericardial effusion. Other Information Study Quality: Fair Conclusion Normal biventricular systolic function. No significant valvular stenosis or regurgitation. Electronically signed by : Hali Pérez, 02/17/2023 00:23:59
== END ==
LOC: RT 14:36
PROVIDERS: PCP Nurse Practitioner; Visit Provider Nurse Practitioner
DX: K21.9 Gastro-esophageal reflux disease without esophagitis (principal); R07.9 Chest pain, unspecified
CPT/HCPCS: 93306

== ENCOUNTER → 2023-03-02 11:48 | Outpatient (CLI) | payer MEDICARE, SELFPAY ==
[2023-03-02 12:16] VITALS: BMI 31.6
[2023-03-02 13:01] LABS: POC Glucose,Bedside 121 (70-110)
[2023-03-02 13:05] VITALS: BP 106/65; PULSE 58; RESP 18; O2SAT 99
[2023-03-02 13:35] VITALS: BP 110/64; PULSE 57; RESP 18; TEMP 36.8; O2SAT 99
--- NOTE | 2023-03-02 13:45 | PC.NURSE ---
[id number]-pt arrived in postop via WC transported by [employer]- report given-- pt VSS and denies any pain. Pt sipping on grape juice and @ BS, pt relaxed in recliner chair. Report given state coban on left AC to remain until pt arrives home to allow time for clotting of artery. Pt has IV access right AC
== END ==
LOC: RAD 11:48
PROVIDERS: PCP Nurse Practitioner; Visit Provider Physician Assistant
DX: R07.9 Chest pain, unspecified (principal)
CPT/HCPCS: 75574; 82962; Q9967

== ENCOUNTER 2023-03-28 08:55 | Day surgery (SDC) | payer MEDICARE, SELFPAY ==
[2023-03-28] VITALS (10 sets, daily range): BP systolic 109–150; BP diastolic 57–90; PULSE 56–68; RESP 16–20; O2SAT 95–100; BMI 31.9
--- NOTE | 2023-03-28 09:30 | IR_ITS ---
APPROVED REPORT Patient Location: Outpatient PROCEDURES Left heart catheterization Left ventriculogram Selective coronary angiogram Drug-eluting stent deployment to the proximal and mid LAD Drug-eluting stent deployment to the ostial proximal dominant right coronary artery INDICATION Coronary artery disease, Angina pectoris, Abnormal CCTA Informed consent was obtained prior to the procedure. COMPLICATIONS None Estimated Blood Loss: Less than 10 ML TECHNIQUE One percent lidocaine used to anesthetize the right anterior aspect of the wrist. The right radial artery was accessed via the Seldinger technique. A 6 Mauritanian sheath was placed in the right radial artery. 2.5 mg of Verapamil, 800 mcg of nitroglycerin, 1mg Lidocaine and 5000 U Heparin were given through the arterial sheath. The papa catheter was also used to perform left heart catheterization, left ventriculogram and selective coronary angiogram. At the end the procedure therapeutic Was administered giving a therapeutic ACT and the guide catheter was placed in left main artery followed by Choice PT floppy wire being placed down the LAD. Predilatation with a 2.5 compliant balloon was made. This allowed the advancement of a guide liner into the mid LAD. A 3 mm x 26 mm Yamil frontier stent was deployed at 14 quoc reducing the stenosis. An additional 3.5 mm x 26 mm Yamil frontier stent was placed proximal to the for stent yet still overlapping and deployed at 20 quoc to post dilate. The balloon was advanced and deployed at 20 quoc to further dilate. Excellent angiographic results were obtained with WILLIAM-3 flow being present before and after the procedure. There was no angiographic encroachment on the large diagonal artery. At the end of the procedure the apparatus was removed from the left main artery placed into the right coronary artery followed by the wire being placed distally. A 3.5 x 38 mm Yamil frontier stent was deployed at 20 quoc reducing the stenosis. A 4 mm x 12 mm noncompliant balloon was placed in the ostial proximal segment at 24 quoc to post dilate. At the end the procedure the apparatus was removed the sheath was removed good hemostasis was achieved using TR banding patient was transferred to the postop holding in stable condition ANGIOGRAPHIC RESULTS The left main artery Normal The left anterior descending artery Is proximally normal followed by an additional 60% concentric stenosis followed by an additional mid vessel eccentric 70% stenosis followed by an 80% stenosis distal to a large diagonal artery. The circumflex artery Is a nondominant vessel and widely patent with mild 10% luminal irregularities The right coronary artery Is a large dominant vessel and has a proximal concentric 70% stenosis followed by an additional calcified 50% stenosis. Distally there are 30 and 40% stenosis The BROCK ventriculogram reveals 65% The left ventricular end-diastolic pressure 20 mmHg IMPRESSION Severe proximal and mid LAD as described above with successful stenting reducing this severe disease to 0% with 2 contiguous drug-eluting stents Severe disease in the proximal dominant right coronary artery with successful stenting reducing severe disease to 0% with 1 drug-eluting stent Normal ejection fraction Mild elevated LVEDP PLAN 1. Dual antiplatelet therapy 2. Cardiac rehabilitation 3. Avoidance of tobacco products 4. Risk factor modification 5. LDL less than 55 to be achieved with high intensity statin Electronically signed by : Jorge Luis Arenas MD 03/28/2023 15:03:54
[2023-03-28 09:51] LABS: Anion Gap 10.4 mEq/L (5-15); Blood Urea Nitrogen 15 mg/dl (9-20); Calcium 9.3 mg/dl (8.4-10.2); Carbon Dioxide 33 mmol/L (22.0-30.0); Chloride 99 mmol/L (98-107); Creatinine Clearance Estimated 93 mL/min (50-200); Estimated Glomerular Filt Rate 68 ml/min (>60); GFR (African American) 82 ML/MIN (>60); Glucose 127 mg/dl (74-100); Potassium 4.4 mmoL/L (3.5-5.1); Sodium 138 mmol/L (136-145)
[2023-03-28 10:02] LABS: Basophils # 0.1 K/mm3 (0-0.2); Basophils % 0.4 % (0.1-2.0); Eosinophils # 0.4 K/mm3 (0.0-0.4); Eosinophils % 2.6 % (0.1-12.0); Hematocrit 46.4 % (42.0-52.0); Hemoglobin 15.9 g/dL (14.1-18.0); Lymphocytes # 2.9 K/mm3 (0.7-4.5); Mean Corpuscular HGB Conc 34.2 g/dL (31.8-35.4); Mean Corpuscular Hemoglobin 31.8 pg (27.0-31.2); Mean Corpuscular Volume 92.8 fl (80-94); Mean Platelet Volume 8.8 fl (7.4-10.4); Monocytes # 0.7 K/mm3 (0.1-1.0); Neutrophils # 12.1 K/mm3 (1.8-7.8); Platelet Count 328 K/mm3 (142-424); Red Cell Distribution Width 13.1 % (11.5-17.5); White Blood Count 16.1 K/mm3 (4.8-10.8)
[2023-03-28 10:05] LABS: MANUAL DIFFERENTIAL MANUAL DIFFERENTIAL (MANUAL DIFF)
[2023-03-28 12:01] LABS: Eosinophils % 2 % (0-3); Lymphocytes % 25 % (10-50); Monocytes % 6 % (2-9); Neutrophils % 67 % (42-76); Platelet Estimate Normal; RBC Morphology Normal; Total Cells Counted 100
[2023-03-28 15:25] LABS: CATHL Activated Clotting Time > 400 SEC (74-125)
== END 2023-03-28 15:51 | disposition home or self-care (01) ==
PROVIDERS: PCP Nurse Practitioner; Visit Provider Internal Medicine
DX: E11.9 Type 2 diabetes mellitus without complications (principal); E78.5 Hyperlipidemia, unspecified; I10 Essential (primary) hypertension; K21.9 Gastro-esophageal reflux disease without esophagitis; R93.1 Abnormal findings on diagnostic imaging of heart and coronary circulation; I25.118 Atherosclerotic heart disease of native coronary artery with other forms of angina pectoris; F17.210 Nicotine dependence, cigarettes, uncomplicated
CPT/HCPCS: 80048; 85007; 85025; 85347; 92928; 93458; 99152; 99153; C1725; C1760; C1769; C1876; C9600; J1644; Q9967

== ENCOUNTER 2023-08-22 18:28 | Outpatient (CLI) | payer MEDICARE, SELFPAY ==
[2023-08-22 17:42] LABS: Adenovirus,PCR Not Detected (NotDetected); Coronavirus 19, PCR Not Detected (NotDetected); Coronavirus 229E Not Detected (NotDetected); Coronavirus NL63 Not Detected (NotDetected); Coronavirus OC43 Not Detected (NotDetected); Coronovirus HKU1,PCR Not Detected (NotDetected); Human Metapneumovirus Not Detected (NotDetected); Influenza A, PCR Not Detected (NotDetected); Influenza AH1, 2009 Not Detected (NotDetected); Influenza AH1, PCR Not Detected (NotDetected); Influenza AH3,PCR Not Detected (NotDetected); Influenza B, PCR Not Detected (NotDetected); Parainfluenza 1, PCR Not Detected (NotDetected); Parainfluenza 2, PCR Not Detected (NotDetected); Parainfluenza 3, PCR Not Detected (NotDetected); Parainfluenza 4, PCR Not Detected (NotDetected); Rhinovirus/Enterovirus Not Detected (NotDetected)
[2023-08-23 00:19] LABS: Respiratory Syncytial Virus Detected (NotDetected)
== END 2023-08-22 23:59 ==
LOC: LAB.DROPOF 18:28
PROVIDERS: PCP Nurse Practitioner; Visit Provider Nurse Practitioner
DX: J06.9 Acute upper respiratory infection, unspecified (principal); R06.02 Shortness of breath; B97.4 Respiratory syncytial virus as the cause of diseases classified elsewhere; R09.81 Nasal congestion
CPT/HCPCS: 87581; 87632; 87635; 87798

== ENCOUNTER 2023-09-05 19:30 | Outpatient (CLI) | payer MEDICARE, SELFPAY ==
[2023-09-05 19:08] LABS: Creatinine,Urine Random 63 mg/dL (Not Estab.)
[2023-09-05 19:15] LABS: Microalbumin/Creatinine Ratio 31.2
[2023-09-05 19:29] LABS: Hemoglobin A1C 6.2 % (4.0-6.0)
[2023-09-05 19:41] LABS: Alanine Aminotransferase 16 U/L (12-78); Albumin Level 4.2 g/dl (3.5-5.0); Albumin/Globulin Ratio 1.8 (1.1-1.8); Alkaline Phosphatase 139 U/L (38-126); Anion Gap 9.5 mEq/L (5-15); Aspartate Amino Transferase 23 U/L (17-59); Bilirubin,Total 0.6 mg/dl (0.2-1.3); Blood Urea Nitrogen 15 mg/dl (9-20); Calcium 9.5 mg/dl (8.4-10.2); Carbon Dioxide 32 mmol/L (22.0-30.0); Chloride 100 mmol/L (98-107); Chol/HDL Ratio 4.3 (1-3.5); Cholesterol 184 mg/dl (140-200); Estimated Glomerular Filt Rate 56 ml/min (>60); GFR (African American) 67 ML/MIN (>60); Globulin 2.3 g/dL (1.3-3.2); Glucose 109 mg/dl (74-100); HDL Cholesterol 43 mg/dl (40-60); Potassium 4.5 mmoL/L (3.5-5.1); Sodium 137 mmol/L (136-145); Total Protein,Serum 6.5 g/dl (6.3-8.2); Triglycerides 226 mg/dl (30-150); VLDL Cholesterol 45 mg/dL (0-40)
[2023-09-05 19:52] LABS: Direct LDL Cholesterol 91.37 mg/dL (100-129)
== END 2023-09-05 23:59 ==
LOC: LAB.DROPOF 19:31
PROVIDERS: PCP Family Medicine; Visit Provider Family Medicine
DX: E11.9 Type 2 diabetes mellitus without complications; E78.5 Hyperlipidemia, unspecified; R05.9 Cough, unspecified; R09.89 Other specified symptoms and signs involving the circulatory and respiratory systems; J12.1 Respiratory syncytial virus pneumonia; Z79.84 Long term (current) use of oral hypoglycemic drugs
CPT/HCPCS: 80053; 80061; 82043; 82570; 83036

== ENCOUNTER 2024-01-23 15:35 | Outpatient (CLI) | payer MEDICARE, SELFPAY ==
[2024-01-23 21:27] LABS: Adenovirus,PCR Not Detected (NotDetected); Bordetella Pertussis Not Detected (NotDetected); Chlamydophila Pneumoniae, PCR Not Detected (NotDetected); Coronavirus 229E Not Detected (NotDetected); Coronavirus NL63 Not Detected (NotDetected); Coronavirus OC43 Not Detected (NotDetected); Coronovirus HKU1,PCR Not Detected (NotDetected); Human Metapneumovirus Not Detected (NotDetected); Influenza A, PCR Not Detected (NotDetected); Influenza AH1, 2009 Not Detected (NotDetected); Influenza AH1, PCR Not Detected (NotDetected); Influenza AH3,PCR Not Detected (NotDetected); Influenza B, PCR Not Detected (NotDetected); Mycoplasma Pneumoniae, PCR Not Detected (NotDetected); Parainfluenza 1, PCR Not Detected (NotDetected); Parainfluenza 2, PCR Not Detected (NotDetected); Parainfluenza 3, PCR Not Detected (NotDetected); Parainfluenza 4, PCR Not Detected (NotDetected); Respiratory Syncytial Virus Not Detected (NotDetected); Rhinovirus/Enterovirus Not Detected (NotDetected)
[2024-01-26 04:12] LABS: Coronavirus 19, PCR Detected (NotDetected)
== END 2024-01-23 23:59 | disposition home or self-care (01) ==
LOC: LAB.DROPOF 01-24 15:14
PROVIDERS: PCP Nurse Practitioner; Visit Provider Nurse Practitioner
DX: J06.9 Acute upper respiratory infection, unspecified (principal)
CPT/HCPCS: 87581; 87632; 87635; 87798

== ENCOUNTER 2024-03-01 07:57 | Outpatient (CLI) | payer MEDICARE, SELFPAY ==
--- NOTE | 2024-03-01 08:03 | CA_ITS ---
FINAL REPORT TECHNIQUE: Real-time imaging was performed of the extracranial carotid arteries in transverse and longitudinal planes, with color duplex evaluation of blood flow velocity. Spectral analysis was performed. The cervical vertebral arteries were also examined. CLINICAL HISTORY: DIZZINESS,HTN,SMOKER,HLD COMPARISON: None FINDINGS: NASCET technique is utilized for stenosis evaluation. Right carotid system (centimeters/second): CCA: 67.4 ICA: 81.3 ECA: 94.1 Vertebral artery: Antegrade ICA/CCA ratio: 1.49 Mild plaque is identified at the bifurcation. Left carotid system (centimeters/second): CCA: 72.7 ICA: 73.8 ECA: 83.4 Vertebral artery: Antegrade ICA/CCA ratio: 1.57 Mild plaque is identified at the bifurcation. IMPRESSION: Less than 50% stenosis of the carotid arteries bilaterally. Antegrade flow in the vertebral arteries bilaterally. Reviewed, Interpreted and Dictated by Zana Moscoso MD Transcribed by Harper Barcenas Authenticated and [facility]
== END 2024-03-01 23:59 | disposition home or self-care (01) ==
LOC: RT 07:58
PROVIDERS: PCP Nurse Practitioner; Visit Provider Nurse Practitioner
DX: R42 Dizziness and giddiness (principal)
CPT/HCPCS: 93880

== ENCOUNTER 2024-04-02 10:02 | Outpatient (CLI) | payer MEDICARE, SELFPAY ==
[2024-04-02 19:26] LABS: Basophils # 0.1 K/mm3 (0-0.2); Basophils % 0.6 % (0.1-2.0); Eosinophils # 0.4 K/mm3 (0.0-0.4); Eosinophils % 3.7 % (0.1-12.0); Hematocrit 46.9 % (42.0-52.0); Lymphocytes # 2.8 K/mm3 (0.7-4.5); Lymphocytes % 24.8 % (10-50); Mean Corpuscular HGB Conc 31.9 g/dL (31.8-35.4); Mean Platelet Volume 8.8 fl (7.4-10.4); Monocytes # 0.4 K/mm3 (0.1-1.0); Monocytes % 3.7 % (1.7-9.3); Neutrophils # 7.6 K/mm3 (1.8-7.8); Neutrophils % 67.2 % (37.0-80.0); Platelet Count 318 K/mm3 (142-424); Red Blood Count 4.84 M/mm3 (4.60-6.20); Red Cell Distribution Width 13.6 % (11.5-17.5); White Blood Count 11.2 K/mm3 (4.8-10.8)
[2024-04-02 20:03] LABS: Alanine Aminotransferase 16 U/L (12-78); Albumin Level 4.4 g/dl (3.5-5.0); Albumin/Globulin Ratio 1.9 (1.1-1.8); Alkaline Phosphatase 111 U/L (38-126); Anion Gap 7.6 mEq/L (5-15); Aspartate Amino Transferase 25 U/L (17-59); Bilirubin,Total 0.6 mg/dl (0.2-1.3); Blood Urea Nitrogen 16 mg/dl (9-20); Calcium 9.5 mg/dl (8.4-10.2); Carbon Dioxide 32 mmol/L (22.0-30.0); Chloride 106 mmol/L (98-107); Chol/HDL Ratio 3.5 (1-3.5); Cholesterol 143 mg/dl (140-200); Estimated Glomerular Filt Rate 67 ml/min (>60); GFR (African American) 82 ML/MIN (>60); Globulin 2.3 g/dL (1.3-3.2); Glucose 104 mg/dl (74-100); HDL Cholesterol 41 mg/dl (40-60); Potassium 4.6 mmoL/L (3.5-5.1); Sodium 141 mmol/L (136-145); Total Protein,Serum 6.7 g/dl (6.3-8.2); Triglycerides 118 mg/dl (30-150); VLDL Cholesterol 24 mg/dL (0-40)
[2024-04-02 20:14] LABS: Direct LDL Cholesterol 77.73 mg/dL (100-129)
[2024-04-02 20:28] LABS: Hemoglobin A1C 5.5 % (4.0-6.0)
[2024-04-02 20:33] LABS: Prostate Specific Ag Screen 12.7 ng/ml (0.0-4.0); Thyroid Stimulating Hormone 1.38 uIU/mL (0.465-4.68)
[2024-04-02 20:52] LABS: Vitamin B12 901 pg/mL (239-931)
[2024-04-04 09:20] LABS: HCV Ab Non Reactive (Non Reactive)
== END 2024-04-02 23:59 | disposition home or self-care (01) ==
LOC: LAB.DROPOF 04-03 10:03
PROVIDERS: PCP Nurse Practitioner; Visit Provider Nurse Practitioner
DX: I10 Essential (primary) hypertension (principal); K21.9 Gastro-esophageal reflux disease without esophagitis; E11.69 Type 2 diabetes mellitus with other specified complication; J44.1 Chronic obstructive pulmonary disease with (acute) exacerbation; I25.10 Atherosclerotic heart disease of native coronary artery without angina pectoris; R97.20 Elevated prostate specific antigen [PSA]; Z12.5 Encounter for screening for malignant neoplasm of prostate; E11.9 Type 2 diabetes mellitus without complications; Z11.59 Encounter for screening for other viral diseases; E78.5 Hyperlipidemia, unspecified
CPT/HCPCS: 80053; 80061; 82607; 83036; 84443; 85025; 86803; G0103

== ENCOUNTER 2024-04-16 14:34 | Outpatient (CLI) | payer MEDICARE, SELFPAY ==
[2024-04-16 15:50] LABS: Blood Urea Nitrogen 16 mg/dl (9-20); Estimated Glomerular Filt Rate 67 ml/min (>60); GFR (African American) 82 ML/MIN (>60)
[2024-04-17 13:12] LABS: PSA, Free 2.25 ng/mL; Prostate Specific Ag 12.9 ng/mL (0.0-4.0)
== END 2024-04-16 23:59 | disposition home or self-care (01) ==
LOC: LAB 14:34
PROVIDERS: PCP Nurse Practitioner; Visit Provider Urology
DX: R97.20 Elevated prostate specific antigen [PSA] (principal); N50.89 Other specified disorders of the male genital organs; N40.1 Benign prostatic hyperplasia with lower urinary tract symptoms; R39.89 Other symptoms and signs involving the genitourinary system
CPT/HCPCS: 36415; 82565; 84153; 84154; 84520

== ENCOUNTER 2024-04-18 14:26 | Outpatient (CLI) | payer MEDICARE, SELFPAY ==
--- NOTE | 2024-04-18 14:27 | US_ITS ---
FINAL REPORT TECHNIQUE: Ultrasound images of the testicles were obtained bilaterally. Color Doppler images were obtained. CLINICAL HISTORY: POSS RT TEST MASS COMPARISON: None FINDINGS: ULTRASOUND SCROTUM: The right testicle measures 4.4 cm in length. There is normal flow and echotexture in the right testicle. There is enlargement of the right epididymal head, that may represent epididymitis. There is an 11 mm hypoechoic focus, right epididymal cyst versus spermatocele. The left testicle measures 3.9 cm in length. There is normal flow and echotexture of the left testicle. IMPRESSION: No evidence of testicular mass or torsion. Enlarged head of the epididymis on the right side, that may represent epididymitis. There is a 11 mm cyst that may represent either a right epididymal cyst or spermatocele. Reviewed, Interpreted and Dictated by Maldonado Enrique III, MD Transcribed by Harper Barcenas Authenticated and [facility]
== END 2024-04-18 23:59 | disposition home or self-care (01) ==
LOC: RAD 14:27
PROVIDERS: PCP Nurse Practitioner; Visit Provider Urology
DX: N50.89 Other specified disorders of the male genital organs (principal)
CPT/HCPCS: 76870

== ENCOUNTER 2024-09-04 10:30 | Outpatient (CLI) | payer MEDICARE, SELFPAY ==
[2024-09-04 18:54] LABS: Creatinine,Urine Random 120 mg/dL (Not Estab.)
[2024-09-04 19:37] LABS: Alanine Aminotransferase 17 U/L (12-78); Albumin Level 4.8 g/dl (3.5-5.0); Alkaline Phosphatase 109 U/L (38-126); Anion Gap 10.6 mEq/L (5-15); Aspartate Amino Transferase 24 U/L (17-59); Bilirubin,Total 0.9 mg/dl (0.2-1.3); Blood Urea Nitrogen 19 mg/dl (9-20); Calcium 10.1 mg/dl (8.4-10.2); Carbon Dioxide 29 mmol/L (22.0-30.0); Chloride 102 mmol/L (98-107); Chol/HDL Ratio 4.1 (1-3.5); Cholesterol 149 mg/dl (140-200); Estimated Glomerular Filt Rate 61 ml/min (>60); GFR (African American) 74 ML/MIN (>60); Globulin 2.4 g/dL (1.3-3.2); Glucose 104 mg/dl (74-100); HDL Cholesterol 36 mg/dl (40-60); Potassium 4.6 mmoL/L (3.5-5.1); Sodium 137 mmol/L (136-145); Total Protein,Serum 7.2 g/dl (6.3-8.2); Triglycerides 223 mg/dl (30-150); VLDL Cholesterol 45 mg/dL (0-40)
[2024-09-04 19:48] LABS: Direct LDL Cholesterol 65.95 mg/dL (100-129)
[2024-09-04 20:10] LABS: Thyroid Stimulating Hormone 1.61 uIU/mL (0.465-4.68)
[2024-09-04 20:29] LABS: Vitamin B12 777 pg/mL (239-931)
[2024-09-04 21:04] LABS: Hemoglobin A1C 5.9 % (4.0-6.0)
== END 2024-09-04 23:59 | disposition home or self-care (01) ==
LOC: LAB.DROPOF 09-05 12:27
PROVIDERS: PCP Nurse Practitioner; Visit Provider Nurse Practitioner
DX: E11.69 Type 2 diabetes mellitus with other specified complication (principal); E78.00 Pure hypercholesterolemia, unspecified; I10 Essential (primary) hypertension; K21.9 Gastro-esophageal reflux disease without esophagitis
CPT/HCPCS: 80053; 80061; 82043; 82570; 82607; 83036; 84443

== ENCOUNTER 2024-10-03 11:56 | Outpatient (CLI) | payer MEDICARE, SELFPAY ==
[2024-10-03 18:23] LABS: Basophils % 0.3 % (0.1-2.0); Eosinophils # 0.4 Kmm3 (0.0-0.4); Eosinophils % 3.6 % (0.1-12.0); Hematocrit 37.5 % (42.0-52.0); Hemoglobin 12.3 g/dL (14.1-18.0); Lymphocytes # 3.7 K/mm3 (0.7-4.5); Lymphocytes % 30.8 % (10-50); Mean Corpuscular HGB Conc 32.8 g/dL (31.8-35.4); Mean Corpuscular Hemoglobin 30.9 pg (27.0-31.2); Mean Corpuscular Volume 94.2 fl (80-94); Mean Platelet Volume 10.7 fl (7.4-10.4); Monocytes # 0.6 K/mm3 (0.1-1.0); Monocytes % 5.1 % (1.7-9.3); Neutrophils # 7.2 K/mm3 (1.8-7.8); Neutrophils % 59.9 % (37.0-80.0); Nucleated Red Blood Cells # 0 10^3/uL; Nucleated Red Blood Cells % 0 %; Platelet Count 319 K/mm3 (142-424); Red Blood Count 3.98 M/mm3 (4.60-6.20); Red Cell Distribution Width 13.2 % (11.5-17.5); Red Cell Distribution Width-SD 45.9 fL; White Blood Count 12.1 K/mm3 (4.8-10.8)
[2024-10-03 18:44] LABS: Albumin Level 3.9 g/dl (3.5-5.0); Chloride 107 mmol/L (98-107); Sodium 141 mmol/L (136-145)
[2024-10-03 18:47] LABS: Alanine Aminotransferase 16 U/L (12-78); Albumin/Globulin Ratio 1.8 (1.1-1.8); Alkaline Phosphatase 114 U/L (38-126); Aspartate Amino Transferase 24 U/L (17-59); Bilirubin,Total 0.2 mg/dl (0.2-1.3); Blood Urea Nitrogen 16 mg/dl (9-20); Carbon Dioxide 28 mmol/L (22.0-30.0); Estimated Glomerular Filt Rate 75 ml/min (>60); GFR (African American) 91 ML/MIN (>60); Globulin 2.2 g/dL (1.3-3.2); Total Protein,Serum 6.1 g/dl (6.3-8.2)
[2024-10-03 18:48] LABS: Calcium 8.8 mg/dl (8.4-10.2); Glucose 91 mg/dl (74-100)
[2024-10-03 18:57] LABS: NT Pro Brain Natriuretic Pep. 282 pg/mL (0-125)
== END 2024-10-03 23:59 | disposition home or self-care (01) ==
LOC: LAB.DROPOF 10-04 09:40
PROVIDERS: PCP Nurse Practitioner; Visit Provider Nurse Practitioner
DX: R60.0 Localized edema (principal); J44.1 Chronic obstructive pulmonary disease with (acute) exacerbation; F17.210 Nicotine dependence, cigarettes, uncomplicated
CPT/HCPCS: 80053; 83880; 85025

== ENCOUNTER 2024-10-08 13:39 | Outpatient (CLI) | payer MEDICARE, SELFPAY ==
--- NOTE | 2024-10-08 | CA_ITS ---
APPROVED REPORT EXAM: Comprehensive 2D, Doppler, and color-flow Echocardiogram Fabrication Welder: Ignris Charles CRT Ht: 5 ft 8 in Wt: 210lbs BSA: 2.09 BP: 138/76 mmHg Indications: Chest Pain, COPD, Diabetes, Peripheral Edema, CAD, Hyperlipidemia, Hypertension/HDD, smoker 2D Dimensions LA Volume 32.40 mL LA Volume Index 15.10 mL/m2 (M/F) 16-34 M-Mode Dimensions RVDd 2.43 cm (0.9-2.6) LA Diam 3.57 cm (1.9-4.0) LVDd 4.21 cm (3.5-5.7) LVDs 2.60 cm (3.5-5.7) IVSd 1.61 cm (0.6-1.1) PWd 1.32 cm (0.6-1.1) EF (Teich) 68.90% FS 38.20% EDV (Teich) 79.00 mL ESV (Teich) 24.60 mL LV Diastology E Decel Time 243 (160-240 msec) E/A Ratio 0.88 MED A' 10.90 cm/s LAT A' 12.20 cm/s Aortic Valve AO Peak GR. 10.60 mmHg Mitral Valve MV A Velocity 94.0 (40-130 cm/s) E/A Ratio 0.88 Pulmonary Valve PV Peak Velocity 110.0 (50-150 cm/s) Tricuspid Valve TR P. Velocity 236.00 cm/s RAP Estimate 10.00 mmHg RVSP 32.20 mmHg Left Ventricle The left ventricle is normal size. The left ventricular systolic function is normal. The left ventricular ejection fraction is within the normal range. There is increased LV wall thickness. There is normal LV segmental wall motion. The left ventricular diastolic function is normal. LVEF is 60%. Right Ventricle The right ventricle is normal size. The right ventricular systolic function is normal. Atria Left atrium is mildly dilated. The right atrium size is normal. There is no Doppler evidence of interatrial shunt. Aortic Valve Aortic valve is mildly thickened. There is no aortic valvular stenosis. No aortic regurgitation is present. Mitral Valve The mitral valve is normal in structure. No evidence of mitral valve stenosis. Trace mitral regurgitation. Tricuspid Valve Tricuspid valve is grossly normal in structure and function. Mild tricuspid regurgitation. RVSP is 20-25 mmHg. Pulmonic Valve The pulmonary valve is normal in structure. Trace pulmonic regurgitation. Great Vessels The aortic root is normal in size. IVC is normal in size and collapses >50% with inspiration. Pericardium There is no pericardial effusion. Other Information Study Quality: Fair Conclusion Normal biventricular systolic function. Mild LA dilation. Mild TR. Electronically signed by : Hali Pérez MD 10/09/2024 11:44:20
== END 2024-10-08 23:59 | disposition home or self-care (01) ==
LOC: RT 13:39
PROVIDERS: PCP Nurse Practitioner; Visit Provider Nurse Practitioner
DX: I51.7 Cardiomegaly (principal); I36.1 Nonrheumatic tricuspid (valve) insufficiency; R60.0 Localized edema
CPT/HCPCS: 93306

== ENCOUNTER 2025-03-05 09:24 | Outpatient (CLI) | payer MEDICARE, SELFPAY ==
--- OUTSIDE RECORDS SUMMARY | 2025-01-21 09:00 | XMS_ITS | Encounter Summary ---
Author Organization [facility] Address [address] [place] [address] Care Team Providers Care Clinical Ob Name Role Phone Sarika Barnes APRN Primary Care Provider [phone] Reason for Referral * Consultation (Routine) - Authorized Specialty Diagnoses / Procedures Referred By Contac t Referred To Contact Radiation Oncology Diagnoses Malignant neoplasm of prostate (CMS/HCC) Xiao Watts MD [address] [address] Phone: tel: fax: [facility] [address] [address] Phone: tel: fax: Referral ID Status Reason Start Date Expiration Date Visits Requested Visits Authorized [id number] Authorized Specialty Services Required 01/30/2025 08/01/2026 1 1 Scheduling Instructions For unfavorable intermediate prostate cancer Reason for Visit * Reason Comments Follow-up Malignant neoplasm o f prostate Encounter Details Date Type Department Care Team (Latest Contact Info) Description 01/21/2025 9:00 AM EDT Office Visit [facility] [address] [place] [address] Xiao Watts MD [address] [address] Malignant neoplasm of prostate (CMS/HCC) (Primary Dx) Social History Tobacco Use Types Packs/Day Years Used Date Smoking Tobacco: Every Day Cigarettes Smokeless Tobacco: Never Alcohol Use Standard Drinks/Week Comments Never 0 (1 standard drink = 0.6 oz pur e alcohol) PHQ-2 Answer Date Recorded Patient Health Questionnaire-2 Score 0 01/21/2025 PHQ-9 Answer Date Recorded Patient Health Questionnaire-9 Score 0 01/21/2025 Sex and Gender Information Value Date Recorded Sex Assigned at Not on file Legal Sex Male 7:30 PM EDT Gender Identity Not on file Sexual Orientation Not on file documented as of this encounter Last Filed Vital Signs Vital Sign Reading Time Taken Comments Blood Pressure 132/83 01/21/2025 8:54 AM EDT Pulse 62 01/21/2025 8:54 AM EDT Temperature 36.9 C (98.4 F) 01/21/2025 8:54 AM EDT Respiratory Rate 14 01/21/2025 8:54 AM EDT Oxygen Saturation 99% 01/21/2025 8:54 AM EDT Inhaled Oxygen Concentration - - Weight 91.9 kg (202 lb 9.6 oz) 01/21/2025 8:54 A M EDT Height 172.7 cm (5' 8 ) 01/21/2025 8:54 AM EDT Body Mass Index 30.81 01/21/2025 8:54 AM EDT documented in this encounter Functional Status * Over the past 2 weeks, how often have you been bothered by any of the following problems? Question Answer Date of Assessment Author Little interest or pleasure in doing things Not at all 01/21/2025 8:57 AM EDT Elizabeth Dotson Feeling down, depressed, or hopeless Not at all 01/11 8:57 AM EDT Elizabeth Dotson Patient Health Questionnaire-2 Score 0 01/11 8:57 AM EDT Elizabeth Dotson * Question Answer Date of Assessment Author Trouble falling or staying a sleep, or sleeping too much Not at all 01/21/2025 8:57 AM EDT Elizabeth Dotson Feeling tired or having darian le energy Not at all 01/21/2025 8:57 AM EDT Elizabeth Dotson Poor appetite or overeating Not at all 01/21/2025 8: 57 AM EDT Elizabeth Dotson Feeling bad about yourself - or that you are a failure or have let yourself or your family down Not at all 01/21/2025 8:57 AM EDT Thong Dotson Trouble concentrating on thi ngs, such as reading the newspaper or watching television Not at all 01/21/2025 8:57 AM ASHLEYT Elizabeth Dotson Moving or speaking so slowly that other people could have noticed? Or the opposite - being so fidgety or restless that you have been moving around a lot more than usual. Not at all 01/21/2025 8:57 AM ASHLEYT Michelle Dotson Thoughts that you would be b felicitas off or hurting yourself in some way Not at all 01/21/2025 8:57 AM ASHLEYT Elizabeth Dotson Patient Health Questionnaire-9 Score 0 01/11 8:57 AM Elizabeth Hanks * How difficult have these problems made it for you to do your work, take care of things at home, or get along with other people? Answer Date of Assessment Author Not difficult at all 01/21/2025 8:57 AM Elizabeth Hanks documented as of this encounter Miscellaneous Notes * Progress Notes - Xiao Watts MD - 01/21/2025 9:00 AM EDT [facility]rology Clinic Note 01/30/25 Assessment: Brian Maradiaga is a 64 y.o. male with with a history of elevated PSA to 12.9 in 04/2024 who underwent multiparametric MRI demonstrating a PI-RADS 5 lesion in the left transition zone from the base of the midgland. He underwent MRI fusion biopsy on 09/19/2024, which demonstrated gradegroup 2 disease in the region of interest with the remainder of the cores benign. In combination with his PSA, this would represent unfavorable intermediate risk disease. PSMA PET scan on 10/18/2024 demonstrating a focus of avidity at the region of interest a no other evidence of jaleel or distant metastasis. He presents today for discussion of his options for treatment. We had a long discussion about the options for management of his unfavorable intermediate risk prostate cancer. We discussed that the standard of care would be surgery or radiation with curative intent. We discussed non-standard of care options including watchful waiting, active surveillance, or focal therapies. We discussed surgery in depth, including the operative technique, risks, expected postoperative course, and common complications. We also discussed the option of radiation, and the variety of methods that could be used. He initially expressed interest in surgery, but after further discussion, said he would like to avoid surgery if possible and be referred to radiation oncology to discuss radiation options further. Plan: - Offered referral to Dr. Blanco/ radiation oncology to discuss options for radiation therapy; He would like to think over his options and is inclined to monitor for now. - We will be available as needed if patient elects to proceed with surgery - RTC in 3 months with PSA Xiao Watts MD ? Physician Requesting Consultation: Francesco Dong MD CC: Unfavorable intermediate risk prostate cancer HPI: Brian Maradiaga is a 64 y.o. M previously seen by Dr. Hernandez for elevated PSA and referred to Dr. Tiffanie Dong for prostate biopsy. His PSA in 04/2024 had risen to 12.9. He underwent multiparametric MRI which demonstrated a PI-RADS 5 lesion in the left transition zone. He underwent an MRI fusion biopsy on 09/19/2024, which demonstrated grade group 2 disease in the region of interest with theremainder of the biopsies benign. Patient reports a history of LUTS previously managed with Flomax with frequency, postvoid dribbling, and occasional urge incontinence. He denies weight loss, weakness, fatigue, and gross hematuria. He says he came to clinic today ?? fearing the worst?? after hearing about his biopsy results. He has two granddaughters, and says he is motivated to undergo treatment so he can spend time with them as they grow up. He has a history of coronary artery disease requiring 2 stents to be placed 2 years ago. He currently takes aspirin and prasugrel. He also has diabetes which is managed with metformin. Most recent A1c was 6.2 in 09/2024. He has had multiple prior abdominal surgeries including a right inguinal herniarepair with mesh., appendectomy, and cholecystectomy. PMH: hypertension, hypercholesterolemia, diabetes mellitus, and coronary artery disease for which he has had stents placed PSH: posterior cervical fusion, right ulnar nerve release, right carpal tunnel release, laparoscopic inguinal hernia repair with mesh (likely right side only with the patient is unsure), cholecystectomy and appendectomy FH: Unknown SH: Current 1ppd smoker, 45 p/y. No ETOH, smokes marijuana Symptoms: Moderate LUTS with small-volume UUI. Mild ED. I personally reviewed outside institution and internal imaging studies, imaging reports, labs, cultures, and provider notes as noted below and in the assessment and plan. PMHx: Past Medical History[1] PSHx: Surgical History[2] FHx: Family History[3] SHx: Social History Socioeconomic History Marital status: Spouse name: Not on file Number of children: Not on file Years of education: Not on file Highest education level: Not on file Occupational History Not on file Tobacco Use Smoking status: Every Day Current packs/day: 0.50 Types: Cigarettes Smokeless tobacco: Never Vaping Use Vaping status: Never Used Substance and Sexual Activity Alcohol use: Never Drug use: Not Currently Types: Marijuana Sexual activity: Defer Other Topics Concern Not on file Social History Narrative Not on file Social Drivers of Health Financial Resource Strain: Not on file Food Insecurity: Not on file Transportation Needs: Not on file Physical Activity: Not on file Stress: Not on file Social Connections: Not on file Intimate Partner Violence: Not on file Housing Stability: Not on file Physical Exam: Vitals: 01/21/25 0854 BP: 132/83 Pulse: 62 Resp: 14 Temp: 36.9 ??C (98.4 ??F) SpO2: 99% GEN: NAD HEENT: NCAT, EOMI RESP: Equal bilateral chest rise, normal work of breathing CV: Appears well perfused ABD: Soft, nontender, nondistended. Laparoscopic scars. No inguinal incisions. EXT: No gross deformities MSK: Normal ROM NEURO: No focal deficits, AOx3 PSYCH: Appropriate mood and affect : normal male external genitalia, testes descended bilaterally. Right testis higher riding with a mild hydrocele. Labs: UA: Lab Results Component Value Date SPECGRAV 1.015 08/02/2024 PH 6.5 08/02/2024 GLUCOSEUA Negative 08/02/2024 BILIRUBINUR Negative 08/02/2024 KETONESU Negative 08/02/2024 POCPROTUR Negative 08/02/2024 UROBILINPOC 0.2 08/02/2024 RBCUR Negative 08/02/2024 NITRITE Negative 08/02/2024 WBCUR Trace (A) 08/02/2024 Final Diagnosis (no units) Date/Time Value 09/19/2024 1003 PROSTATE, NEEDLE CORE BIOPSIES: A. MRI #1 PROSTATE BIOPSY: - PROSTATIC ADENOCARCINOMA, MELCHOR'S 3+4 (GRADE GROUP 2, 5-10% PATTERN 4), INVOLVING FOUR OF FOUR CORES (20%, 40%, 90%, 90%). B. RIGHT LATERAL BASE: - BENIGN PROSTATIC TISSUE. C. RIGHT MEDIAL BASE: - BENIGN PROSTATIC TISSUE. D. RIGHT LATERAL MID: - BENIGN PROSTATIC TISSUE. E. RIGHT MEDIAL MID: - BENIGN PROSTATIC TISSUE. F. RIGHT MEDIAL APEX: - BENIGN PROSTATIC TISSUE. G. RIGHT LATERAL APEX: - BENIGN PROSTATIC TISSUE. H. LEFT LATERAL BASE: - BENIGN PROSTATIC TISSUE. I. LEFT LATERAL MID: - BENIGN PROSTATIC TISSUE. J. LEFT LATERAL APEX: - BENIGN PROSTATIC TISSUE. K. LEFT MEDIAL APEX: - BENIGN PROSTATIC TISSUE. L. LEFT MEDIAL MID: - BENIGN PROSTATIC TISSUE. M. LEFT LATERAL BASE: - BENIGN PROSTATIC TISSUE. Imaging: PSMA PET - 10/18/24 IMPRESSION: Small focus of mild PSMA avidity in the left prostate M the right posterior and mid gland. These low-grade levels are nonspecific for postbiopsy inflammatory change versus underlying neoplasm. No evidence of PSMA avid jaleel or distant metastasis. === 06/14/24 === MR PELVIS W AND WO IV CONTRAST FINDINGS: Size: 4.7 x 3.9 x 5.0 cm with a volume of 48 cubic cm PSA Density: 0.25 ng/mL/mL Quality: Adequate, mild geometric distortion on diffusion-weighted imaging from rectal distention does not compromise diagnostic confidence Hemorrhage: No Peripheral zone: No suspicious lesion identified. Subtle heterogeneity near the left gland apex related to chronic prostatitis. Transition zone: Moderate heterogeneity consistent with prostatic hyperplasia. Focal finding as below. Lesion #1: Location: left base/mid gland TZ on series 5 image 25 measuring up to 26 mm. T2: Moderately hypointense without definite extraprostatic extension. DWI: Mildly hyperintense on high b-value DWI and markedly hypointense on ADC without extraprostaticextension DCE: Focal early enhancement, negative Prostate margin: No definite extraprostatic extension. Lesion overall PI-RADS category: 5 Neurovascular bundles: Not involved Seminal Vesicles: Not involved Lymph Nodes: No lymphadenopathy. Bones: No osseous metastases. Other pelvic organs: Sigmoid diverticulosis partially visualized. Probable surgical mesh in the anterior pelvis. - Impression - PI-RADS 5 lesion in the left mid gland transition zone as described above. [1] Past Medical History: Diagnosis Date Diabetes (CMS/HCC) Elevated PSA High cholesterol Hypertension [2] Past Surgical History: Procedure Laterality Date APPENDECTOMY CERVICAL SPINE SURGERY CHOLECYSTECTOMY CORONARY ANGIOPLASTY WITH STENT PLACEMENT [3] Family History Problem Relation Name Age of Onset No Known Problems Mother No Known Problems Father Anesthesia problems Neg Hx Malig Hyperthermia Neg Hx documented in this encounter Plan of Treatment Upcoming Encounters Date Type Department Care Team (Late st Contact Info) Description 04/26/2025 10:20 AM EST Office Visit [facility] Mult[facility] On[facility] [address] [place] [address] Xiao Watts MD [address] [facility] [address] [place] [address] Scheduled Referrals Name Type Priority Associated Diagnoses Order Schedule Ambulatory referral to Radiation Oncology Outpatient Referral Routine Malignant neoplasm of prostate (CMS/HCC) 1 Occurrences starting 01/30/2025 until 08/03/2026 documented as of this encounter Procedures Procedure Name Priority Date/Time Associated Diagnosis Comments PROSTATE SPECIFIC ANTIGEN, DIAGNOSTIC, SERUM Routine 01/21/2025 9:36 AM EDT Malignant neoplasm of prostate (CMS/HCC) documented in this encounter Results * (ABNORMAL) Prostate Specific Antigen, Diagnostic, Serum (01/21/2025 9:36 AM EDT) PSA, Diagnostic, Serum 14.30(H) 0.00 - 4.50 ng/mL 01/21/2025 10:41 AM EDT [facility] Blood Venous blood specimen / Unknown Venipuncture / Unknown 01/21/2025 9:36 AM EDT 01/21/2025 10:05 AM EDT Narrative [facility] - 01/21/2025 10:41 AM EDT Performed by Lester electrochemiluminescent immunoassay which is standardized against the PSA [place] Reference Standard (WHO 96/670). Results obtained with different test methods or kits cannot be used interchangeably. us Xiao Watts MD LAB BLOOD ORDERABLES Final R esult [facility] [address] [place] [address] documented in this encounter Visit Diagnoses Diagnosis Malignant neoplasm of prostate (CMS/HCC)- Primary Malignant neoplasm of prostate documented in this encounter Additional Health Concerns Assessment Noted Time PHQ-9 Depression Total Score: 0 01/22/20 8:57 AM EDT A fall risk assessment has been complete d for the patient 01/21/2025 8:57 AM EDT A Body Mass Index follow-up plan has been documented for the patient 08/02/2024 3:10 PM EST documented as of this encounter Care Teams Clinical Ob Relationship Specialty Start Date End Date Sarika Barnes APRN [address] [place] [address] PCP - General 06/13/22 documented as of this encounter
[2025-03-05 16:13] LABS: Hemoglobin A1C 5.9 % (4.0-6.0)
[2025-03-05 16:55] LABS: Albumin Level 4.2 g/dl (3.5-5.0); Chloride 102 mmol/L (98-107)
[2025-03-05 16:56] LABS: Potassium 4.1 mmoL/L (3.5-5.1); Sodium 141 mmol/L (136-145)
[2025-03-05 16:58] LABS: Alanine Aminotransferase 14 U/L (12-78); Albumin/Globulin Ratio 1.9 (1.1-1.8); Alkaline Phosphatase 125 U/L (38-126); Anion Gap 15.1 mEq/L (5-15); Aspartate Amino Transferase 23 U/L (17-59); Bilirubin,Total 0.5 mg/dl (0.2-1.3); Blood Urea Nitrogen 14 mg/dl (9-20); Carbon Dioxide 28 mmol/L (22.0-30.0); Creatinine,Serum 1.00 mg/dl (0.66-1.25); Estimated Glomerular Filt Rate 75 ml/min (>60); GFR (African American) 91 ML/MIN (>60); Globulin 2.2 g/dL (1.3-3.2); Total Protein,Serum 6.4 g/dl (6.3-8.2); Triglycerides 158 mg/dl (30-150)
[2025-03-05 16:59] LABS: Calcium 9.0 mg/dl (8.4-10.2); Cholesterol 134 mg/dl (140-200); Glucose 112 mg/dl (74-100); HDL Cholesterol 37 mg/dl (40-60)
[2025-03-06 08:27] LABS: Hepatitis B Surface Antigen Negative (Negative)
--- OUTSIDE RECORDS SUMMARY | 2025-03-06 09:39 | XMS_ITS | Clinical Summary ---
Author Organization [facility] Address [address] [place] [address] Care Team Providers Care Shrub Planter Name Role Phone Cameron Sarika Briones APRN Primary Care Provider [phone] Allergies No known active allergies Medications tamsulosin (Flomax) 0.4 MG 24 hr capsule Take 1 capsule by mouth in the morning. 07/09/2024 Active ranolazine (Ranexa) 500 MG 12 hr tablet Take 1 tablet by mouth in the morning and 1 tablet before bedtime. 07/28/2024 Active prasugrel (Effient) 10 MG tablet Take 1 tablet by mouth in the morning. 07/07/2024 Active omeprazole (PriLOSEC) [address] capsule 07/13/2024 Activ e methocarbamol (Robaxin) 750 MG tablet 05/18/2024 Active metFORMIN XR (Glucophage-XR) 500 MG 24 hr tablet 07/13/2024 Active lisinopril 20 MG tablet Take 1 tablet by mouth in the morning. Active gabapentin (Neurontin) 300 MG capsule 07/31/2024 Active famotidine (Pepcid) 20 MG tablet Take 1 tablet by mouth in the morning. 05/21/2024 Active atorvastatin (Lipitor) 20 MG tablet Take 1 tablet by mouth in the morning. Active albuterol 108 (90 Base) MCG/ACT inhaler 08/22/2023 Act brandy cholecalciferol (Vitamin D-3) 250 MCG (42830 UT) capsule Take 1 capsule by mouth in the morning. Active aspirin 81 MG EC tablet Take 1 tablet by mouth nightly. Active Active Problems Problem Noted Date Diagnosed Date Tobacco use disorder 01/21/2025 Second hand smoke exposure 01/21/2025 Encounters Date Type Department Care Team Description 01/31/2025 Telephone [facility] Radiation [address] [facility] [id number] [place] [phone] Moreno Munoz MD 01/21/2025 9:00 AM EDT Office Visit [facility] [address] [place] [phone] Xiao Watts MD Malignant neoplasm of prostate (CMS/HCC) (Primary Dx) 01/21/2025 Travel from Last 3 Months Family History Medical History Relation Name Comments No Known Problems Father No Known Problems Mother Anesthesia problems Neg Hx Malig Hyperthermia Neg Hx Relation Name Status Comments Father Mother Social History Tobacco Use Types Packs/Day Years Used Date Smoking Tobacco: Every Day Cigarettes Smokeless Tobacco: Never Tobacco Cessation:Ready to Q uit: Not Asked; Counseling Given: Not Answered Alcohol Use Standard Drinks/Week Comments Never 0 [...] on file Sexual Orientation Not on file Last Filed Vital Signs Vital Sign Reading [...] Mass Index 30.81 01/21/2025 8:54 AM EDT Plan of Treatment Upcoming Encounters Date Type Department Care Team (Late st Contact Info) Description 04/26/2025 10:20 AM EST Office Visit [facility] [address] [place] [address] Xiao Watts MD [address] [place] [address] Health Maintenance Due Date Last Done Comments [facility]-Hepatitis C Screening 1960 [facility]-Medicare Annual Wellness (AWV) 1960 [facility]-Infant/Child/Adol SDOH Screenings 1960 [facility]- SDOH Screenings 12/15/1977 [facility]-Adult SDOH Screenings 12/15/1977 [facility]-DTaP,Tdap,and Td Vaccine s (1 - Tdap) 12/15/1978 [facility]-Pneumococcal Vaccine: 50 + Years (1 of 2 - PCV) 12/15/1978 [facility]-Zoster Vaccines (1 of 2) 12/15/1978 CT Colonography 12/15/2004 Colonoscopy 12/15/2004 FIT-DNA 12/15/2004 FIT 12/15/2004 FOBT 12/15/2004 Sigmoidoscopy 12/15/2004 [facility]-Colorectal Cancer Screening 12/15/2004 [id number] Vaccine (2 - Marylin risk series) 11/10/2020 10/13/2020 [facility]-Abdominal Aortic Aneurys m (AAA) Screening 12/15/2024 [facility]-Influenza Vaccine (#1) 02/11/202502/18, 02/06/2020 [facility]-Depression Screening 01/21/2026 025, 01/21/2025 [facility]-RSV Vaccine: 60+ Years o r (1 - 1-dose 75+ series) 12/15/2034 [facility]-Obesity Intervention Completed 08/02/2024 HPV Vaccines Aged Out No longer eligi ble based on patient's age to complete this topic [facility]-HIB Vaccines Aged Out No longer e ligible based on patient's age to complete this topic [facility]-Hepatitis A Vaccines Aged Out No longer eligible based on patient's age to complete this topic [facility]-IPV Vaccines Aged Out No longer e ligible based on patient's age to complete this topic [facility]-Rotavirus Vaccines Aged Out No lo nger eligible based on patient's age to complete this topic Procedures Procedure Name Priority Date/Time Associated Diagnosis Comments PROSTATE SPECIFIC ANTIGEN, DIAGNOSTIC, SERUM Routine 01/21/2025 9:36 AM EDT Malignant neoplasm of prostate (CMS/HCC) from Last 3 Months Results * (ABNORMAL) Prostate Specific Antigen, Diagnostic, Serum (01/21/2025 9:36 AM EDT) PSA, Diagnostic, Serum 14.30(H) 0.00 - 4.50 ng/mL 01/21/2025 10:41 AM EDT [facility] Blood Venous blood specimen / Unknown Venipuncture / Unknown 01/21/2025 9:36 AM EDT 01/21/2025 10:05 AM EDT Narrative [facility] - 01/21/2025 10:41 AM EDT Performed by Lester electrochemiluminescent immunoassay which is standardized against the PSA Erik Reference Standard (WHO 96/670). Results obtained with different test methods or kits cannot be used interchangeably. us Xiao Watts MD LAB BLOOD ORDERABLES Final R esult [facility] [address] [place] [address] from Last 3 Months Insurance [facility] MEDICARE Care Teams Shrub Planter Relationship Specialty Start Date End Date Sarika Barnes APRN [facility] [place] [address] [facility] - General 06/13/22
--- OUTSIDE RECORDS SUMMARY | 2025-03-06 09:39 | XMS_ITS | Clinical Summary ---
Author Organization [facility] Address [address] [place] [address] Phone Care Team Providers Care Nsh Teacher Name Role Phone Mayur Guo MD Primary Care Provider [phone] Allergies No known active allergies Medications lisinopril (PRINIVIL;ZESTR IL) 20 mg Oral Tablet Take 20 mg by mouth daily. Active MULTIVITAMIN ORAL Take by mouth. Active ascorbic acid, vitamin C, (VITAMIN C) 1,000 mg Oral Tablet Take 1,000 mg by mouth daily. Active gabapentin (NEURONTIN) 300 mg Oral Capsule TAKE 2 CAPSULES BY MOUTH 2 TIMES DAILY 120 Cap 2 10/27/2016 Active atorvastatin (LIPITOR) 20 mg Oral Tablet Take by mouth daily. Active cefdinir (OMNICEF) 300 mg Oral Capsule Take 300 mg by mouth every 12 hours. Active sulfamethoxazol e-trimethoprim (BACTRIM DS) 800-160 mg Oral Tablet Take by mouth every 12 hours. Active diazePAM (VALIUM) 5 mg Oral Tablet Take 1 Tab by mouth every 12 hours as needed. 20 Tab 07/20/2017 Active docusate sodium (COLACE) 100 mg Oral Capsule Take 1 Cap by mouth 2 times daily. 60 Cap 2 07/20/2017 Active ergocalciferol (DRISDOL) 50,000 unit Oral Capsule Take 1 Cap by mouth once a week. 4 Cap 2 07/26/2017 Active HYDROcodone-josé miguel taminophen (NORCO) 7.5-325 mg Oral Tablet Take 1-2 Tabs by mouth every 6 hours as needed for Pain. 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 BONE GRAFT 06/29/2016 Surgeon: Marshall Jon MD; Location: [facility]; Service: Spine Medical devices from this surgery are in the Medical Devices section. HERNIA REPAIR aneta groin FOOT SURGERY r big toe CARPAL TUNNEL RELEASE 01/31/2017 Right RIGHT CARPAL TUNNEL RELEASE, RIGHT ULNAR NERVE RELEASE; Surgeon: Marshall Jon MD; Location: [facility]; Service: Spine CERVICAL LAMINECTOMY 07/19/2017 N/A C5/6 C6/7 POSTERIOR CERVICAL DECOMPRESSION WITH INSITU FUSION; Surgeon: Marshall Jon MD; Location: [facility]; Service: Spine CERVICAL FUSION 07/19/2017 Surgeon: Marshall Jon MD; Location: [facility]; Service: Spine Medical History Medical History Date Comments Hypertension Neuropathy Arthritis Herniated disc, cervical Foraminal stenosis of cervical region Heartburn Anesthesia complication hard to wake Headache Hyperlipidemia Liver disease FATTY LIVER Family History Medical History Relation Name Comments Anesth Problems Neg Hx Social History Tobacco Use Types Packs/Day Years Used Date Smoking Tobacco: Every Day Cigarettes 1 50.1 Started: 01/24/1975 Smokeless Tobacco: Never Alcohol Use Standard Drinks/Week Comments No 0 (1 standard drink = 0.6 oz pur e alcohol) Sex and Gender Information Value Date Recorded Sex Assigned at Not on file Legal Sex Male 8:53 PM EDT Gender Identity Not on file Sexual Orientation Not on file Obstetrics History Last Filed Vital Signs Vital Sign Reading Time Taken Comments Blood Pressure 120/59 07/20/2017 8:08 AM EST Pulse 74 07/20/2017 8:08 AM EST Temperature 37.5 C (99.5 F) 07/20/2017 8:08 AM EST Respiratory Rate 18 07/20/2017 8:08 AM EST Oxygen Saturation 92% 07/20/2017 8:08 AM EST Inhaled Oxygen Concentration - - Weight 100 kg (220 lb 6 oz) 07/19/2017 10:04 AM EST Height 172.7 cm (5' 8 ) 07/19/2017 10:04 AM EST Body Mass Index 33.51 07/19/2017 10:04 AM EST Plan of Treatment Health Maintenance Due Date Last Done Comments Annual Wellness Exam 12/15/1962 Hepatitis C Screening 12/15/1977 DTaP/TDaP/Td (1 - Tdap) 12/15/1978 Cologuard 12/15/2004 Colon Cancer Screening 12/15/2004 Colonoscopy 12/15/2004 FIT 12/15/2004 Sigmoidoscopy 12/15/2004 Virtual Colonography 12/15/2004 Low Dose Lung Cancer Screening 12/15/2009 Pneumococcal Vaccine 50+ (1 of 1 - PCV) 12/15/2009 Zoster (1 of 2) 12/15/2009 COVID-19 Vaccine (1 - 2023-2 5 season) 2025 Influenza Vaccine (#1) 2025 Hepatitis B Vaccine Aged Out No longe r eligible based on patient's age to complete this topic Meningococcal B Vaccine Aged Out No l onger eligible based on patient's age to complete this topic Medical Devices Implanted Type Area Cane Weigher Helper Device Identifier Shelf Expiration Date Model / Serial / Lot Screws Selfdrilling Variable Angle [id number] - [id number] Implanted:Qty: 1 on 06/29/2016 by Marshall Jon MD at [facility] N/A: Spine Cervical [employer] [id number] / / Screw Variable Angle 4.0x14mm - [id number] Implanted:Qty: 7 on 06/29/2016 by Marshall Jon MD at [facility] N/A: Spine Cervical [employer] [id number] / / Spacer Cervical Stealth 14 X 16 X 5 6 Degree - [id number] Implanted:Qty: 2 on 06/29/2016 by Marshall Jon MD at [facility] N/A: Spine Cervical [employer] [id number] / / Spacer Cervical Stealth 14 X 16 X 6 6 Degree - [id number] Implanted:Qty: 1 on 06/29/2016 by Marshall Jon MD at [facility] N/A: Spine Cervical [employer] [id number] / / Plate Cervical Benson 54mm 3level - [id number] Implanted:Qty: 1 on 06/29/2016 by Marshall Jon MD at [facility] N/A: Spine Cervical [employer] [id number] / / Insurance Noom POS ENEFproA POS * Guarantor: Brian Maradiaga Account Type Relation to Patient Date of Phone Billing Address [place] Personal Family Self Advance Directives For more information, please contact: [phone] * Full Code (Latest Code Status on File) Date Activated Date Inactivated Comments 07/19/2017 5:45 PM 07/20/2017 7:07 PM * Full Code Date Activated Date Inactivated Comments 06/29/2016 1:03 PM 06/30/2016 4:02 PM Care Teams Nsh Teacher Relationship Specialty Start Date End Date Mayur Guo MD [address] [place] [address] [place] [address] PCP - General Family Medicine 12/22/15
--- OUTSIDE RECORDS SUMMARY | 2025-03-06 09:39 | XMS_ITS | Encounter Summary ---
Author Organization [facility] Address [address] [id number] Care Team Providers Care Investigator Vice Name Role Phone CameronSarika tovar Anali TAN Primary Care Provider [phone] Encounter Details Date Type Department Care Team (Late st Contact Info) Description 01/31/2025 Telephone [facility] Radiation [id number] [place] [address] Moreno Munoz MD [address] [place] [id number] Social History Tobacco Use Types Packs/Day Years [...] on file documented as of this encounter Miscellaneous Notes * Telephone Encounter - Guilherme Holder - 01/31/2025 9:25 AM EDT Called and spoke with pt to schedule consult per WQ. Pt declined consultation, and stated they are going to wait until the fall and have surgery. Let pt know that if he changes his mind to give us a call and we can schedule him. Pt aware and thanked me for calling. documented in this encounter Plan of Treatment Upcoming Encounters Date Type Department Care Team (Late st Contact Info) Description 04/26/2025 10:20 AM EST Office Visit [facility] [address] [place] [address] Xiao Watts MD [address] [facility] [address] [place] [address] documented as of this encounter Visit Diagnoses Not on filedocumented in this encounter Additional Health Concerns Assessment Noted Time PHQ-9 Depression Total Score: 0 01/22/20 25 8:57 AM EDT A fall risk assessment has been complete d for the patient 01/21/2025 8:57 AM EDT A Body Mass Index follow-up plan has been documented for the patient 08/02/2024 3:10 PM EST documented as of this encounter Care Teams Investigator Vice Relationship Specialty Start Date End Date Sarika Barnes APRN [address] [place] [address] PCP - General 06/13/22 documented as of this encounter
--- OUTSIDE RECORDS SUMMARY | 2025-03-06 09:39 | XMS_ITS | Encounter Summary ---
Author Organization [facility] Address [address] [place] [address] Care Team Providers Care Manager Party Name Role Phone CameronSarika tovar Anali TAN Primary Care Provider [phone] Encounter Details Date Type Department Care Team (Latest Contact Info) Description 01/21/2025 Travel Social History Tobacco Use Types Packs/Day Years [...] on file documented as of this encounter Functional Status * Over the [...] television Not at all 01/21/2025 8:57 AM EDT Elizabeth Dotson Moving or speaking so slowly that other people could have noticed? Or the opposite - being so fidgety or restless that you have been moving around a lot more than usual. Not at all 01/21/2025 8:57 AM EDT Michelle Dotson Thoughts that you would be b felicitas off or hurting yourself in some way Not at all 01/21/2025 8:57 AM EDT Elizabeth Dotson Patient Health Questionnaire-9 Score 0 01/11 8:57 AM EDT Elizabeth Dotson * How difficult have these problems made it for you to do your work, take care of things at home, or get along with other people? Answer Date of Assessment Author Not difficult at all 01/21/2025 8:57 AM EDT Elizabeth Dotson documented as of this encounter Plan of Treatment Upcoming Encounters Date Type Department Care Team (Late st Contact Info) Description 04/26/2025 10:20 AM EST Office Visit [facility] Multidisciplinary Oncology Clinic [address] [place] [address] Xiao Watts MD [id number] [place] [address] documented as of this encounter Visit Diagnoses [...] documented as of this encounter Care Teams Manager Party Relationship Specialty Start Date End Date Sarika Barnes APRN [facility] [place] [address] PCP - General 06/13/22 documented as of this encounter
== END 2025-03-05 23:59 ==
LOC: LAB.DROPOF 03-06 09:28
PROVIDERS: PCP Nurse Practitioner; Visit Provider Nurse Practitioner
DX: E78.5 Hyperlipidemia, unspecified (principal); E11.9 Type 2 diabetes mellitus without complications; Z11.59 Encounter for screening for other viral diseases
CPT/HCPCS: 80053; 80061; 83036; 87340; 87389